=== PATIENT | male | born 1950 | race Caucasian/White ===

== ENCOUNTER 2016-08-19 12:44 | Inpatient (IN) | payer MEDICAID, OTHER ==
[~2016-08-19] VITALS: Ht 170.2 cm; Wt 83.5 kg
[~2016-08-19 12:44] MED LIST: AMLO-145 PO; ASPI-664 PO; ATOR10TA65 PO; CLOP75TA27 PO; FURO40TA4 PO; LOSA50TA2 PO; SPIR25TA PO; UDROBAC PO
[2016-08-19] MEDS ORDERED: ASPIRIN 325 MG TAB PO STA (13:02)
[2016-08-19 13:25] LABS: ADD SCAN DIFF NO
[2016-08-19 13:30] LABS: BASOPHIL # 0.1 10^3/ul (0.0-0.1); BASOPHILS % 0.5 % (0.0-2.0); EOSINOPHILS % 0.2 % (0.0-7.0); HEMATOCRIT 52.8 % (42.0-52.0); HEMOGLOBIN 17.2 g/dl (14.0-18.0); LYMPHOCYTES % 15.7 % (15.0-51.0); MEAN CORPUSCULAR HEMOGLOBIN 30.2 pg (29.0-33.0); MEAN CORPUSCULAR HGB CONC 32.6 g/dl (32.0-37.0); MEAN CORPUSCULAR VOLUME 92.6 fl (82.0-101.0); MEAN PLATELET VOLUME 9.1 fl (7.4-10.4); MONOCYTE # 0.9 10^3/ul (0.3-0.9); MONOCYTES % 6.6 % (0.0-11.0); NEUTROPHIL # 9.9 10^3/ul (1.6-7.5); NEUTROPHILS % 76.6 % (39.0-77.0); PLATELET COUNT 369 10^3/UL (140-415); RED CELL DISTRIBUTION WIDTH 14.6 % (11.5-14.5)
[2016-08-19] MEDS ORDERED: SOD CHLORIDE 0.9% 1,000 ML IV ONE (13:30)
[2016-08-19] MEDS ORDERED: LABETALOL HCL 20MG INJ IV ONE (13:30)
--- NOTE | 2016-08-19 13:33 | RADRPT ---
PROCEDURE: XR Chest. CLINICAL INDICATION: Chest pain/hypertension TECHNIQUE: Chest AP portable. COMPARISON: 01/14/2016 FINDINGS: The mediastinal structures are unremarkable. There is calcification of the thoracic aorta (consiste nt with atherosclerosis). There is moderate cardiac enlargement. There is pulmonary venous hyperte nsion. There are RLL and LLL patchy consolidations, right greater than left (edema/pneumonia). The pleural spaces are unremarkable. The osseous structures are unremarkable. IMPRESSION: Moderate cardiac enlargement. Pulmonary venous hypertension. RLL and LLL patchy consolidations (edema/pneumonia). RPTAT: HGDB .Devin Najera MD, MD Date Time Electronically viewed and signed by .Devin Najera MD, MD on 08/19/2016 13:32 .B/
[2016-08-19 13:40] LABS: INR 1.04; PARTIAL THROMBOPLASTIN TIME 25.1 Sec (25.0-35.0); POTASSIUM 4.3 mmol/L (3.5-5.1); PROTIME 13.6 Sec (12.2-14.2); PT RATIO 1.1
[2016-08-19 13:43] LABS: CREATININE 1.19 mg/dl (0.61-1.24)
[2016-08-19 13:54] LABS: TROPONIN-I 0.065 ng/ml (0.00-0.12)
[2016-08-19] MEDS ORDERED: NITROGLYCERIN (SL) 0.4 MG TAB SL ONE (14:00)
[2016-08-19] MEDS ORDERED: hydrALAzine 20 MG INJ IV ONE (14:30)
[2016-08-19] MEDS ORDERED: AZITHROMYCIN 500MG/NS (PMX) 250 ML IV STA (15:14)
[2016-08-19] MEDS ORDERED: CEFTRIAXONE 1 GM/50 ML (PMX) 50 ML IVPB STA (15:14)
[2016-08-19] MEDS ORDERED: FUROSEMIDE 40 MG INJ IV ONE (15:30)
[2016-08-19] MEDS ORDERED: ONDANSETRON 4 MG INJ IV PRN ×2 (15:30→16:00)
[2016-08-19] MEDS ORDERED: ACETAMINOPHEN 325 MG TAB PO PRN ×2 (15:30→16:00)
[2016-08-19] MEDS ORDERED: HYDROCODONE/APAP (5/325) TAB PO PRN (16:00)
[2016-08-19] MEDS ORDERED: NACL 0.9% 3 ML SYG IV SCH (16:00)
[2016-08-19] MEDS ORDERED: ALBUTEROL/IPRATROPIUM (NEB) 3 ML AMP HHN PRN (16:00)
[2016-08-19] MEDS ORDERED: MAGNESIUM HYDROXIDE 30ML CUP PO PRN (16:00)
[2016-08-19] MEDS ORDERED: morphine 2 MG INJ IV PRN (16:00)
[2016-08-19] MEDS ORDERED: VANCOMYCIN IV PER PHARMACY XX SCH (16:00)
[2016-08-19] MEDS ORDERED: NITROGLYCERIN (SL) 0.4 MG TAB SL PRN (16:00)
[2016-08-19] MEDS ORDERED: DOCUSATE SODIUM 100 MG CAP PO PRN (16:00)
[2016-08-19] MEDS ORDERED: NA PHOSPHATE/BIPHOS 133 ML ENEMA PR PRN (16:00)
[2016-08-19] MEDS ORDERED: GUAIFENESIN/CODEINE 5ML CUP PO PRN (16:00)
--- NOTE | 2016-08-19 16:24 | HP ---
DATE OF ADMISSION: 08/19/2016 IDENTIFICATION: This is a 65-year-old male. CHIEF COMPLAINT: Chest pain, shortness of breath. HISTORY OF PRESENT ILLNESS: A 65-year-old male with past medical history of prior PA and coronary a rtery disease, essential hypertension, CHF and pulmonary hypertension who presents with chest pain a nd shortness of breath for the last few days. He went to his primary care doctor, Dr. Bedoya, who se nt him in because the patient also had high blood pressure as well. He has been off of his blood pr essure medicines for the last 3 months. Denies any abdominal pain, no nausea, no vomiting, no diarr hea, no constipation, no upper or lower GI bleeding, although he has had some gas symptoms. He has only been taking aspirin at home. When he came into the ER today, he was found with a white blood c ell count of 13,000 with signs of pneumonia and also elevated BNP of 4300 and signs of CHF exacerba tion as well. PAST MEDICAL HISTORY: As above. ALLERGIES: NO KNOWN DRUG ALLERGIES. MEDICATIONS AT HOME: 1. Plavix 75 mg daily. 2. Amlodipine 10 mg daily. 3. Atorvastatin 5 mg at bedtime. 4. Cozaar 50 mg b.i.d. 5. Aldactone 25 mg daily. 6. Aspirin 81 mg daily. Again, he has only been taking aspirin at home. 7. Lasix 20 mg daily. 8. Robitussin q.4h. p.r.n. PAST SURGICAL HISTORY: He has had hand surgery in the past and angioplasty in 2016. FAMILY HISTORY: Father had heart disease. SOCIAL HISTORY: He smokes marijuana daily. He drinks about 1 case of beer a week since teenage yea rs. PHYSICAL EXAMINATION: VITAL SIGNS: T-max 98.5, pulse is 99 to 150. Respirations 20 to 22, blood pressure is to 162 to 22 8 systolic over 141 to 174 diastolic, saturating at 89% to 91% on 2 liters nasal cannula. GENERAL: Patient sitting up in bed, answering questions appropriately. No acute distress. HEENT: Pupils equal, round, react to light. Extraocular muscles intact. NECK: Supple, no thyromegaly. LUNGS: Distant breath sounds bilaterally, mild crackles heard at the bases. CARDIOVASCULAR: S1, S2 heard. No rubs or gallops. ABDOMEN: Soft, nontender, nondistended. Normal bowel sounds. No rebound or guarding. MUSCULOSKELETAL: Trace pitting edema bilateral lower extremities to the mid calves. NEUROLOGIC: No focal deficits. LABORATORIES: Basic metabolic panel is normal. Troponin is negative x1. BNP 4800. WBC 13.0, hemo globin 17.3, hematocrit 52.8, platelets of 369. Coags are normal. Chest x-ray shows moderate cardi ac enlargement, pulmonary venous hypertension, right lower lobe and left lower lobe patchy consolida tions, edema versus pneumonia. ASSESSMENT AND PLAN: A 65-year-old male with shortness of breath, chest pain. 1. Shortness of breath. Again, could be secondary to combination of congestive heart failure and p neumonia, so we will put him on Lasix and keep the head of the bed greater than 30 degrees. Monitor ins and outs and daily weights, morphine, oxygen, nitrates as well p.r.n. Put him on high dose aspi rin, rule him out for acute coronary syndrome. Trend his troponins and get a 2D echocardiogram as marii skelton. Get a cardiology consult as well. Again, patient is not taking has not been taking his blood pressure medicines for the last 2 months. 2. Hypertensive urgency. Again, hydralazine p.r.n. Given that he is in acute congestive heart jack lure, we will just do that for now and get a cardiology consult. Again, he is on Lasix as well. 3. History of coronary artery disease with myocardial infarction in the past. Again see #2 as well continue aspirin and Plavix for now. We are also ruling him out for acute coronary syndrome. Cont inue Lipitor. Check TSH, A1c and lipid panel. 4. History of prior congestive heart failure. Again, follow up the echocardiogram results. 5. History of pulmonary hypertension. Again, follow up echocardiogram results. Get a cardiology c onsult as well. 6. Gastrointestinal prophylaxis. He will be on proton pump inhibitor. 7. Deep venous thrombosis prophylaxis. He will be on heparin subQ. Dictated By: SUPA MIKE Conf#: [id number] DID#: [id number]
[2016-08-19] MEDS ORDERED: PIPER-TAZO 3.375 GM IV (PMX) 100 ML IVPB SCH (16:30)
[2016-08-19] MEDS ORDERED: VANCOMYCIN 1.75 GM in SOD CHLORIDE 0.9% 500 ML IVPB SCH (17:30)
--- NOTE | 2016-08-19 17:34 | ERA ---
ER Documentation Chief Complaint Date/Time DATE: 08/19/16 TIME: 17:23 Chief Complaint CAME IN VIA INTAKE FROM MD OFFICE WITH HTN AND TACHYCARDIA HPI 65-year-old male comes in the emergency room for chest pain, shortness of breath that been increasing for 2 days. Also feels like his heart is beating out of his chest. Denies any current nausea or vomiting. Also states that he has had a cough going on for several days there is been increasing. Denies fevers. He has a history of congestive heart failure as well as hypertension. He had angioplasty several months ago. He was put on multiple medications. He is not taking any medications now because he had some insurance problem is not been able to get his medications for months now. ROS All systems reviewed and are negative except as per history of present illness. Medications Home Meds Active Scripts Atorvastatin Calcium (Atorvastatin Calcium) 10 Mg Tablet, 5 MG PO QHS, #30 TAB 1 Refill Prov:ISIS GRAMAJO MD 01/16/16 Furosemide (Lasix) 40 Mg Tab, 40 MG PO DAILY, #30 TAB Prov:ISIS GRAMAJO MD 01/16/16 Guaifenesin-Codeine Phosphate* (Robitussin* AC) 5 Ml Syrup, 5 ML PO Q4H Y for COUGH, #100 ML Prov:ISIS GRAMAJO MD 01/16/16 Losartan Potassium* (Cozaar*) 50 Mg Tablet, 50 MG PO BID, #60 TAB 1 Refill Prov:ISIS GRAMAJO MD 01/16/16 Spironolactone* (Aldactone*) 25 Mg Tablet, 25 MG PO DAILY, #30 TAB 1 Refill Prov:ISIS GRAMAJO MD 01/16/16 Clopidogrel Bisulfate (Clopidogrel) 75 Mg Tablet, 75 MG PO DAILY, #30 TAB 1 Refill Prov:ISIS GRAMAJO MD 01/16/16 Amlodipine Besylate* (Amlodipine Besylate*) 5 Mg Tablet, 10 MG PO DAILY, #30 TAB 1 Refill Prov:ISIS GRAMAJO MD 01/16/16 Aspirin* (Aspirin* EC) 81 Mg Tablet.dr, 81 MG PO DAILY, #30 2 Refills Prov:ISIS GRAMAJO MD 01/16/16 Allergies Allergies: Coded Allergies: No Known Allergy (Unverified , 01/12/16) PMhx/Soc Medical and Surgical Hx: pt denies Surgical Hx History of Surgery: Yes (angioplasty) Anesthesia Reaction: No Hx Neurological Disorder: No Hx Respiratory Disorders: Yes (bronchitis) Hx Cardiac Disorders: Yes Hx Psychiatric Problems: No Hx Miscellaneous Medical Probl: No Hx Alcohol Use: Yes (3 beers a day) Hx Substance Use: Yes (occasional marijuana) Hx Tobacco Use: Yes Smoking Status: Former smoker Physical Exam Vitals Vital Signs Date Time Temp Pulse Resp B/P Pulse Ox O2 Delivery O2 Flow Rate FiO2 08/19/16 16:22 92 22 162/99 98 Nasal Cannula 2.0 08/19/16 14:28 94 22 177/107 98 Nasal Cannula 2.0 08/19/16 14:10 96 20 170/128 98 Nasal Cannula 2.0 08/19/16 13:36 99 22 181/116 91 Nasal Cannula 2.0 08/19/16 13:26 Nasal Cannula 2 08/19/16 13:03 132 20 162/141 89 Room Air 08/19/16 12:48 98.5 150 20 228/174 98 Physical Exam Const: [] Mild distress, Head: Atraumatic Eyes: Normal Conjunctiva ENT: Normal External Ears, Nose and Mouth. Neck: Full range of motion..~ No meningismus. Resp: Bilateral coarse bibasilar crackles and slight decreased breath sounds at the bases. Cardio: Regular tachycardia, no murmurs Abd: Soft, non tender, non distended. Normal bowel sounds Skin: No petechiae or rashes Back: No midline or flank tenderness Ext: No cyanosis, or edema Neur: Awake and alert and oriented 3, no focal deficit Psych: Normal Mood and Affect Result Diagram: 08/19/16 1310 08/19/16 1310 Results 24 hrs Laboratory Tests Test 08/19/16 13:10 08/19/16 15:30 White Blood Count 13.010^3/ul Red Blood Count 5.7010^6/ul Hemoglobin 17.2g/dl Hematocrit 52.8% Mean Corpuscular Volume 92.6fl Mean Corpuscular Hemoglobin 30.2pg Mean Corpuscular Hemoglobin Concent 32.6g/dl Red Cell Distribution Width 14.6% Platelet Count 71140^3/UL Mean Platelet Volume 9.1fl Neutrophils % 76.6% Lymphocytes % 15.7% Monocytes % 6.6% Eosinophils % 0.2% Basophils % 0.5% Nucleated Red Blood Cells % 0.0/100WBC Neutrophils # 9.910^3/ul Lymphocytes # 2.010^3/ul Monocytes # 0.910^3/ul Eosinophils # 0.010^3/ul Basophils # 0.110^3/ul Nucleated Red Blood Cells # 0.010^3/ul Prothrombin Time 13.6Sec Prothrombin Time Ratio 1.1 INR International Normalized Ratio 1.04 Activated Partial Thromboplast Time 25.1Sec Sodium Level 143mmol/L Potassium Level 4.3mmol/L Chloride Level 106mmol/L Carbon Dioxide Level 24mmol/L Anion Gap 17 Blood Urea Nitrogen 14mg/dl Creatinine 1.19mg/dl Glucose Level 150mg/dl Calcium Level 9.0mg/dl Troponin I 0.065ng/ml 0.105ng/ml B-Type Natriuretic Peptide 4320PG/ML Lactic Acid Level 2.6mmol/L Free Thyroxine 1.23ng/dl Current Medications Medications (Trade) Dose Ordered Sig/Mamadou Route PRN Reason Start Time Stop Time Status Last Admin Dose Admin Aspirin (Aspirin) 325 mg ONCE STAT PO 08/19/16 13:02 08/19/16 13:06 DC 08/19/16 13:20 Labetalol HCl 20 mg 20 mg ONCE ONCE IV 08/19/16 13:30 08/19/16 13:31 DC 08/19/16 13:20 Sodium Chloride (NS) 1,000 ml @ 1,000 mls/hr Q1H ONCE IV 08/19/16 13:30 08/19/16 14:29 DC 08/19/16 13:20 Nitroglycerin (Nitroglycerin (Sl Tab) 0.4 Mg) 1 tab ONCE ONCE SL 08/19/16 14:00 08/19/16 14:01 DC 08/19/16 13:43 Hydralazine HCl (Apresoline) 10 mg ONCE ONCE IV 08/19/16 14:30 08/19/16 14:31 DC 08/19/16 14:24 Furosemide 40 mg 40 mg ONCE ONCE IV 08/19/16 15:30 08/19/16 15:31 DC 08/19/16 15:29 Ceftriaxone Sodium 50 ml @ 100 mls/hr ONCE STAT IVPB 08/19/16 15:14 08/19/16 15:43 DC 08/19/16 15:29 Azithromycin (Zithromax 500mg/ NS (Pmx)) 250 ml @ 250 mls/hr ONCE STAT IV 08/19/16 15:14 08/19/16 16:13 DC 08/19/16 16:18 Ondansetron HCl (Zofran Inj) 4 mg ER BRIDGE PRN IV NAUSEA AND/OR VOMITING 08/19/16 15:30 08/20/16 15:29 Acetaminophen (Tylenol Tab) 650 mg ER BRIDGE PRN PO MILD PAIN/FEVER 08/19/16 15:30 08/20/16 15:29 IV Flush (NS 3 ml) 3 ml PER PROTOCOL IV 08/19/16 16:00 Ondansetron HCl (Zofran Inj) 4 mg Q6H PRN IV NAUSEA AND/OR VOMITING 08/19/16 16:00 Acetaminophen (Tylenol Tab) 650 mg Q6H PRN PO PAIN LEVEL 1-3 OR FEVER 08/19/16 16:00 Acetaminophen/ Hydrocodone Bitart ([place] (5/325)) 1 tab Q6H PRN PO MODERATE PAIN LEVEL 4-6 08/19/16 16:00 Morphine Sulfate (morphine) 2 mg Q4H PRN IV SEVERE PAIN LEVEL 7-10 08/19/16 16:00 Docusate Sodium (Colace) 100 mg Q12H PRN PO CONSTIPATION 08/19/16 16:00 Magnesium Hydroxide (Milk Of Mag) 30 ml DAILY PRN PO CONSTIPATION 08/19/16 16:00 Sodium Biphosphate/ Sodium Phosphate (Fleet Enema) 133 ml DAILY PRN [place] CONSTIPATION 08/19/16 16:00 Heparin Sodium (Porcine) (Heparin (5000 Units/0.5 ml)) 5,000 unit Q12 SC 08/19/16 21:00 Lorazepam (Ativan) 0.5 mg Q6H PRN IV ANXIETY 08/19/16 16:00 Albuterol/ Ipratropium (Duoneb) 3 ml Q4H RESP THERAPY PRN HHN SHORTNESS OF BREATH 08/19/16 16:00 Nitroglycerin (Nitroglycerin (Sl Tab) 0.4 Mg) 1 tab Q5M PRN SL ANGINA 08/19/16 16:00 Aspirin (Halfprin) 81 mg DAILY PO 08/20/16 09:00 08/20/16 09:00 DC Atorvastatin Calcium (Lipitor) 5 mg QHS PO 08/19/16 21:00 Clopidogrel Bisulfate (plaVIX) 75 mg DAILY PO 08/20/16 09:00 Guaifenesin/ Codeine Phosphate (Robitussin Ac Liquid Cup) 5 ml Q4H PRN PO COUGH 08/19/16 16:00 Furosemide 40 mg 40 mg BID DIURETICS IV 08/19/16 18:00 Piperacillin Sod/ Tazobactam Sod (Zosyn 3.375gm/ 100 ml (Pmx)) 100 ml @ 200 mls/hr Q6 IVPB 08/19/16 16:30 Vancomycin HCl (Vanco Iv Per Pharmacy) VANCOMYCIN PER PHARMACY PER PROTOCOL XX 08/19/16 16:00 Aspirin 162 mg 162 mg DAILY PO 08/20/16 09:00 Vancomycin HCl 1.75 gm/Sodium Chloride 500 ml @ 125 mls/hr NOW IVPB 08/19/16 17:30 08/19/16 17:31 Vancomycin HCl (Vancocin) 250 ml @ 125 mls/hr Q12H IVPB 08/20/16 05:00 Procedures/MDM Hypertensive emergency and congestive heart failure in a patient with right lower lobe pneumonia with sepsis. 30 cc/kg of IV fluid were not given because of signs of fluid overload and physical exam as well as laboratories and congestive heart failure on chest x-ray. Patient was treated with Rocephin and azithromycin for community-acquired pneumonia. He had unstable vital signs on arrival and his blood pressure was treated with labetalol which reduced it modestly followed by nitroglycerin and hydralazine. His diastolic still remains slightly elevated above 100 but was much better than his initial presentation. Is also feeling somewhat better and less short of breath in the emergency room. He is being admitted to telemetry. Spoke with Dr. Miguel will came to see the patient in the emergency room. EKG interpretation: Sinus tachycardia rate of 130, left axis deviation, left ventricular hypertrophy, QT of 465, no ST or T-wave changes concerning for acute ischemia. clamshell engineer interpretation: Sinus tachycardia followed by normal sinus rhythm after fluid administration with no other arrhythmia. Chest x-ray interpretation: Pulmonary vascular congestion consistent with heart failure with right-sided pneumonia versus possible pleural effusion as well, no pneumothorax, no fractures. Medical care time 37 minutes: Includes treatment of pneumonia with sepsis, hypertensive emergency, use of vasoactive medications labetalol, hydralazine, nitroglycerin attempt to order treatment high blood pressureof congestive heart failure, very careful fluid administration, chart review, multiple visits the patient's bedside to reassess status, discussion with admitting doctor and patient. This does not include any billable procedures Departure Diagnosis: Primary Impression: Hypertensive emergency Additional Impressions: Sepsis due to pneumonia Congestive heart failure Lactic acidosis Condition: Serious LISETTE CAMPBELL DO Aug 19, 2016 17:34
[2016-08-19] MEDS: FUROSEMIDE 40 MG INJ IV SCH (18:58)
[2016-08-19 19:20] LABS: CK-MB 2.22 ng/ml (0.0-2.4)
[2016-08-19 19:21] LABS: TROPONIN-I 0.099 ng/ml (0.00-0.12)
[2016-08-19] MEDS: LORAZEPAM 2 MG INJ IV PRN (20:22)
[2016-08-19 20:30] VITALS: TEMP 98.5
[2016-08-19] MEDS: HEPARIN 5,000 UNIT/0.5 ML VIAL SC SCH (20:38)
[2016-08-19] MEDS ORDERED: ATORVASTATIN 10 MG TAB PO SCH (21:00)
--- NOTE | 2016-08-19 23:30 | RADRPT ---
Echocardiogram Report ADDENDUM Patient Name: ENMA KAHN Gender: Male Date: 1950 Study Date: 19-Aug-2016 Grain Trimmer: HALIE KATE Location: 01 Ref. Physician: SUPA BARDALES Quality: Technically Difficult Study Procedures: Transthoracic echocardiogram with complete 2D, M-Mode, and doppler examination. Indications: Congestive Heart Failure. 2D/M Mode Doppler Measurement Value Normal Ranges Measurement Value Normal Ranges LVIDd 2D 5.0 3.5 - 5.6 cm JENNIFER Vmax 0.7 cm2 LVIDs 2D 3.1 2.1 - 4.1 cm JENNIFER VTI 1.1 cm2 FS 2D 38.2 % AV Mean Loco 1.7 m/sec LVPWd 2D 1.3 0.6 - 1.1 cm AV Mean PG 13.0 mmHg IVSd 2D 1.3 0.6 - 1.1 cm AV Peak Loco 2.3 m/sec IVS/LVPW 2D 1.0 AV Peak PG 21.0 mmHg AoR Diam 2D 2.4 2.0 - 3.7 cm AV VTI 40.4 cm LA/Ao 2D 1 0 - 1 LVOT Mean Loco 0.7 m/sec EDV 2D 127.0 cm3 LVOT Mean PG 3.0 mmHg ESV 2D 29.8 cm3 LVOT Peak Loco 0.7 m/sec LA Dimen 2D 2.8 2.3 - 4.0 cm LVOT Peak PG 2.0 mmHg LVOT Diam 1.7 cm LVOT VTI 19.6 cm LVOT Area 2.3 cm2 MV E Peak Loco 0.8 m/sec MV A Peak Loco 1.2 m/sec MV E/A 0.7 MV Decel Time 165 msec MV E/A 0.7 TR Peak Loco 3.8 m/sec TR Peak PG 59.0 mmHg RVSP 62.0 mmHg Findings Left Ventricle: Normal left ventricular cavity size. Mild concentric left ventricular hypertrophy. Mild left ventricular systolic dysfunction. Ejection fraction is visually estimated at 4045 %. Tissue Doppler/Mitral Doppler indices are consistent with impaired relaxation (Stage I diastolic dysfunction). Right Ventricle: Normal right ventricular size. Normal right ventricular systolic function. Left Atrium: The left atrium is normal in size. Right Atrium: The right atrium is normal in size. Mitral Valve: Mitral valve leaflets appear mildly thickened. Mild mitral annular calcification. Trace mitral regurgitation. Aortic Valve: Moderate aortic stenosis. Aortic valve Max velocity 2.31 m/sec. Max PG 21.00 mmHg. Mean PG 15.00 mmHg. Aortic valve area 0.87 cm2. Tricuspid Valve: Normal appearance of the tricuspid valve. Estimated peak PA systolic pressure 62 mmHg. There is moderate tricuspid regurgitation. Pulmonic Valve: Pulmonic valve not well visualized. Pericardium: Normal pericardium with no significant pericardial effusion. Aorta: Normal aortic root. IVC: Normal size and normal respiratory collapse consistent with normal right atrial pressure. Conclusions Normal left ventricular cavity size. Mild concentric left ventricular hypertrophy. Mild left ventricular systolic dysfunction. Ejection fraction is visually estimated at 40-45 %. Tissue Doppler/Mitral Doppler indices are consistent with impaired relaxation (Stage I diastolic dysfunction). Mitral valve leaflets appear mildly thickened. Mild mitral annular calcification. Trace mitral regurgitation. Moderate aortic stenosis. Aortic valve Max velocity 2.31 m/sec. Max PG 21.00 mmHg. Mean PG 15.00 mmHg. Aortic valve area 0.87 cm2. Normal appearance of the tricuspid valve. Estimated peak PA systolic pressure 62 mmHg. There is moderate tricuspid regurgitation. Electronically Signed By: Jah Cheung 22-Aug-2016 12:29:40 -0700 [ADDENDUM] Patient Name: ENMA KAHN Study Date: 19-Aug-2016 [id number]
[2016-08-20] VITALS (9 sets, daily range): BP systolic 161–189; BP diastolic 86–103; PULSE 86–107; RESP 13–20; Ht 170.2 cm; Wt 83.5 kg
[2016-08-20] MEDS ORDERED: hydrALAzine 20 MG INJ ONE (02:54)
[2016-08-20] MEDS: hydrALAzine 20 MG INJ IV PRN ×3 (03:00→15:07)
[2016-08-20] MEDS ORDERED: VANCOMYCIN 1 GM in NS 250 ML IVPB SCH (05:00)
[2016-08-20] MEDS: FUROSEMIDE 40 MG INJ IV SCH ×2 (05:49→16:28)
[2016-08-20 06:16] LABS: ADD SCAN DIFF NO
[2016-08-20 06:24] LABS: BASOPHIL # 0.1 10^3/ul (0.0-0.1); BASOPHILS % 0.5 % (0.0-2.0); EOSINOPHILS # 0.1 10^3/ul (0.0-0.5); EOSINOPHILS % 0.5 % (0.0-7.0); HEMATOCRIT 48.5 % (42.0-52.0); HEMOGLOBIN 16.1 g/dl (14.0-18.0); LYMPHOCYTES # 1.7 10^3/ul (0.8-2.9); LYMPHOCYTES % 15.7 % (15.0-51.0); MEAN CORPUSCULAR HEMOGLOBIN 30.2 pg (29.0-33.0); MEAN CORPUSCULAR HGB CONC 33.2 g/dl (32.0-37.0); MEAN PLATELET VOLUME 9.2 fl (7.4-10.4); MONOCYTES % 9.5 % (0.0-11.0); NEUTROPHIL # 8.1 10^3/ul (1.6-7.5); NEUTROPHILS % 73.3 % (39.0-77.0); PLATELET COUNT 307 10^3/UL (140-415); RED BLOOD COUNT 5.33 10^6/ul (4.70-6.10)
[2016-08-20 06:55] LABS: CALCIUM 8.3 mg/dl (8.4-10.2); CREATININE 0.93 mg/dl (0.61-1.24); POTASSIUM 3.3 mmol/L (3.5-5.1)
[2016-08-20 07:05] LABS: CHOL/HDL RATIO 4.2 RATIO
[2016-08-20 07:17] LABS: TROPONIN-I 0.1 ng/ml (0.00-0.12)
[2016-08-20 07:20] LABS: CK-MB 2.2 ng/ml (0.0-2.4)
[2016-08-20 07:38] LABS: THYROID STIMULATING HORMONE 2.48 MIU/L (0.465-4.680)
[2016-08-20] MEDS: CLOPIDOGREL 75 MG TAB PO SCH (08:56)
[2016-08-20] MEDS: HEPARIN 5,000 UNIT/0.5 ML VIAL SC SCH ×2 (08:59→20:25)
[2016-08-20] MEDS: ASPIRIN (EC) 81 MG TAB PO SCH (08:59)
[2016-08-20] MEDS ORDERED: ASPIRIN (EC) 81 MG TAB PO SCH (09:00)
[2016-08-20] MEDS: CEFTRIAXONE 1 GM/50 ML (PMX) 50 ML IVPB SCH (14:54)
--- NOTE | 2016-08-20 14:59 | PN ---
Date/Time of Note Date/Time of Note DATE: 08/20/16 TIME: 14:52 Assessment/Plan VTE Prophylaxis VTE Prophylaxis Intervention: heparin Lines/Catheters IV [facility] Urinary Cath still in place: No Assessment/Plan Chief Complaint/Hosp Course ASSESSMENT AND PLAN: 65-year-old male with shortness of breath, chest pain, Hx of CAD. 1. Shortness of breath. Again, could be secondary to combination of congestive heart failure and pneumonia, slowly improving. Has also r/o'ed for ACS. - continue Lasix and keep the head of the bed greater than 30 degrees. - Monitor ins and outs and daily weights, morphine, oxygen, nitrates as well p.r.n - f/u cardiology consult rec's as well. - continue abx 2. Hypertensive urgency - Again, patient is not taking has not been taking his blood pressure medicines for the last 2 months. - continue hydralazine p.r.n., Lasix for now - f/u CV rec's 3. History of coronary artery disease with myocardial infarction in the past. Has ruled out for acute coronary syndrome. Again see #2 as well - continue aspirin and Plavix for now. We are also - Continue Lipitor. 4. History of prior congestive heart failure - ECHO shows; Conclusions 1. Lower limits of normal systolic function. Normal left ventricular cavity size. Mild concentric left ventricular hypertrophy. Ejection fraction is visually estimated at 50-55 %. Tissue Doppler/ Mitral Doppler indices are consistent with impaired relaxation (Stage I diastolic dysfunction). 2. Mitral valve leaflets appear mildly thickened. Mild mitral annular calcification. Trace mitral regurgitation. 3. Moderate aortic stenosis. Mean PG 15.00 mmHg. Aortic valve area 0.87 cm2. 4. Normal appearance of the tricuspid valve. Estimated peak PA systolic pressure 62 mmHg. There is moderate tricuspid regurgitation. - monitor for now, Lasix. 5. History of pulmonary hypertension. - f/u cardiology consult rec'sas well. 6. Gastrointestinal prophylaxis - proton pump inhibitor. 7. Deep venous thrombosis prophylaxis - heparin subQ. Problems: Subjective 24 Hr Interval Summary Free Text/Dictation Pt states less SOB. Exam/Review of Systems Vital Signs Vitals Vital Signs Date Time Temp Pulse Resp B/P Pulse Ox O2 Delivery O2 Flow Rate FiO2 08/20/16 12:19 81 16 147/90 98 08/20/16 06:50 Room Air 08/19/16 22:30 2.0 08/19/16 20:30 98.5 Intake and Output 08/19/16 08/19/16 08/20/16 15:00 23:00 07:00 Output Total 2750 ml 750 ml Balance -2750 ml -750 ml Exam GENERAL: Patient sitting up in bed, answering questions appropriately. No acute distress. HEENT: Pupils equal, round, react to light. Extraocular muscles intact. NECK: Supple, no thyromegaly. LUNGS: some distant breath sounds bilaterally, mild crackles heard at the bases. CARDIOVASCULAR: S1, S2 heard. No rubs or gallops. ABDOMEN: Soft, nontender, nondistended. Normal bowel sounds. No rebound or guarding. MUSCULOSKELETAL: Trace pitting edema bilateral lower extremities to the mid calves. NEUROLOGIC: No focal deficits. Results Result Diagram: 08/20/16 0545 08/20/16 0540 Results 24 hrs Laboratory Tests Test 08/19/16 15:30 08/19/16 17:30 08/19/16 18:50 08/19/16 23:40 Lactic Acid Level 2.6 H 3.4 H 3.1 H Troponin I 0.105 0.099 0.095 Free Thyroxine 1.23 Creatine Kinase 86 Creatine Kinase Index 2.6 Creatinine Kinase MB (Mass) 2.22 Test 08/20/16 05:40 08/20/16 05:45 08/20/16 08:35 Sodium Level 139 Potassium Level 3.3 L Chloride Level 106 Carbon Dioxide Level 24 Anion Gap 12 Blood Urea Nitrogen 16 Creatinine 0.93 Glucose Level 158 Hemoglobin A1c 5.4 Calcium Level 8.3 L Creatine Kinase 229 H Creatine Kinase Index 1.0 Creatinine Kinase MB (Mass) 2.20 Troponin I 0.100 0.099 Triglycerides Level 116 Cholesterol Level 206 H LDL Cholesterol, Calculated 135 HDL Cholesterol 48 Cholesterol/HDL Ratio 4.2 Thyroid Stimulating Hormone (TSH) 2.480 White Blood Count 11.0 H Red Blood Count 5.33 Hemoglobin 16.1 Hematocrit 48.5 Mean Corpuscular Volume 91.0 Mean Corpuscular Hemoglobin 30.2 Mean Corpuscular Hemoglobin Concent 33.2 Red Cell Distribution Width 15.0 H Platelet Count 307 Mean Platelet Volume 9.2 Neutrophils % 73.3 Lymphocytes % 15.7 Monocytes % 9.5 Eosinophils % 0.5 Basophils % 0.5 Nucleated Red Blood Cells % 0.0 Neutrophils # 8.1 H Lymphocytes # 1.7 Monocytes # 1.0 H Eosinophils # 0.1 Basophils # 0.1 Nucleated Red Blood Cells # 0.0 Medications Medications Current Medications Ondansetron HCl (Zofran Inj) 4 mg Q6H PRN IV NAUSEA AND/OR VOMITING; Start at 16:00 Acetaminophen (Tylenol Tab) 650 mg Q6H PRN PO PAIN LEVEL 1-3 OR FEVER; Start at 16:00 Acetaminophen/ Hydrocodone Bitart ([place] (5/325)) 1 tab Q6H PRN PO MODERATE PAIN LEVEL 4-6; Start 08/19/16 at 16:00 Morphine Sulfate (morphine) 2 mg Q4H PRN IV SEVERE PAIN LEVEL 7-10; Start 08/19 at 16:00 Docusate Sodium (Colace) 100 mg Q12H PRN PO CONSTIPATION; Start 08/19/16 at 16: 00 Magnesium Hydroxide (Milk Of Mag) 30 ml DAILY PRN PO CONSTIPATION; Start at 16:00 Sodium Biphosphate/ Sodium Phosphate (Fleet Enema) 133 ml DAILY PRN [place] CONSTIPATION; Start 08/19/16 at 16:00 Heparin Sodium (Porcine) (Heparin (5000 Units/0.5 ml)) 5,000 unit Q12 SC Last administered on 08/20/16 08:59; Admin Dose 5,000 UNIT; Start 08/19/16 at 21:00 Lorazepam (Ativan) 0.5 mg Q6H PRN IV ANXIETY Last administered on 08/19/16 20: 22; Admin Dose 0.5 MG; Start 08/19/16 at 16:00 Nitroglycerin (Nitroglycerin (Sl Tab) 0.4 Mg) 1 tab Q5M PRN SL ANGINA; Start at 16:00 Atorvastatin Calcium (Lipitor) 5 mg QHS PO Last administered on 08/19/16 20:36 ; Admin Dose 5 MG; Start 08/19/16 at 21:00 Clopidogrel Bisulfate (plaVIX) 75 mg DAILY PO Last administered on 08/20/16 08 :56; Admin Dose 75 MG; Start 08/20/16 at 09:00 Guaifenesin/ Codeine Phosphate (Robitussin Ac Liquid Cup) 5 ml Q4H PRN PO COUGH ; Start 08/19/16 at 16:00 Aspirin 162 mg 162 mg DAILY PO Last administered on 08/20/16 08:59; Admin Dose 162 MG; Start 08/20/16 at 09:00 Ceftriaxone Sodium 50 ml @ 100 mls/hr DAILY@1530 IVPB ; Start 08/20/16 at 15:30 Azithromycin (Zithromax 500mg/ NS (Pmx)) 250 ml @ 250 mls/hr DAILY@16 IVPB ; Start 08/20/16 at 16:00 Hydralazine HCl (Apresoline) 10 mg Q4H PRN IV SBP > 160 Last administered on 06:59; Admin Dose 10 MG; Start 08/20/16 at 03:00 SUPA BARDALES Aug 20, 2016 14:59
[2016-08-20] MEDS: AZITHROMYCIN 500MG/NS (PMX) 250 ML IVPB SCH (16:27)
--- NOTE | 2016-08-20 17:31 | CONS ---
DATE OF ADMISSION: 08/19/2016 DATE OF CONSULTATION: 08/20/2016 TYPE OF CONSULTATION: Cardiology. REASON FOR CONSULTATION: Shortness of breath, chest pain, assess for acute coronary syndrome. REQUESTING PHYSICIAN: Dr. Espana from the hospitalist service. HISTORY OF PRESENT ILLNESS: Mr. Rivera is a 65-year-old male with history of prior [place], coronary art jayme disease, status post PTCA to December 2015, hypertension, ICD, cardiomyopathy, decrea sed left ventricular ejection fraction, last being approximately 45% by echo 12/2015. He presents w ith complaints of substernal chest pain described as a stabbing sensation radiating across his ches t for last month and shortness of breath ongoing for multiple months. Upon arrival, temperature of 98.5, blood pressure markedly elevated 228/174, pulse 150, respiratory rate 20, saturating 98%. The patient's labs revealed white count 13.0, hemoglobin 10.2, platelet count 369. Sodium 142, potassi um 4.3, creatinine 1.1, BUN 14. Troponin negative. BNP of 4320, free T4 of 1.23 within normal limi ts. INR of 1.0. The patient underwent a chest x-ray revealing moderate cardiac enlargement, pulmon kiet venous hypertension, right lower lobe and left lower lobe patchy consolidations. The patient's electrocardiogram revealed normal sinus rhythm at a rate of 90 with left axis deviation and deep T-w ave inversions across the anterior precordial leads as well as the inferior. The patient has been d iagnosed with pneumonia, treated with azithromycin and ceftriaxone. In addition, he was placed on a spirin and Plavix, which the patient states he had been off after angioplasty due to insurance reaso ns. PAST MEDICAL HISTORY: As above in HPI. MEDICATIONS CURRENTLY IN HOSPITAL: 1. Azithromycin. 2. Ceftriaxone. 3. Plavix 75 mg daily. 4. Plavix 160 mg daily. 5. Hydralazine p.r.n. 6. Heparin 5000 subcutaneous q. 12. 7. Lipitor 5 mg at bedtime. 8. Lasix 40 mg IV b.i.d. 9. Zofran p.r.n. 10. Tylenol p.r.n. 11. [place] p.r.n. 12. Morphine p.r.n. 13. Colace p.r.n. 14. Milk of magnesia. 15. Ativan p.r.n. 16. DuoNebs p.r.n. 17. Sublingual nitroglycerin p.r.n. 18. Robitussin-AC p.r.n. ALLERGIES: NO KNOWN DRUG ALLERGIES. SOCIAL HISTORY: No current tobacco. Positive marijuana usage. Social ETOH. FAMILY HISTORY: History of sudden cardiac or early CAD. REVIEW OF SYSTEMS: As above in HPI. CONSTITUTIONAL: No fevers, chills. PULMONARY: Shortness of breath. CARDIOVASCULAR: Chest pain. GASTROINTESTINAL: No vomiting. GENITOURINARY: No hematuria. MUSCULOSKELETAL: Degenerative joint disease. PSYCHIATRIC: The patient denies depression. NEUROLOGIC: No documented history of CVA. ENDOCRINE: No history of thyroid disease, diabetes mellitus. PHYSICAL EXAMINATION: VITAL SIGNS: Temperature of 98.5, blood pressure 184/92, pulse 103. Respirations 18, saturating 96 % on oxygen. GENERAL: The patient is alert, awake, complaining of shortness of breath, substernal sharp chest pa in. NECK: JVP approximately 9 cm water. CHEST: Decreased breath sounds at bases bilaterally. HEART: Regular rate and rhythm. Normal S1, S2, I/ systolic murmur, nondisplaced PMI. ABDOMEN: Positive bowel sounds, soft. EXTREMITIES: No edema, 1+ pulses bilaterally, posterior tibial. LABORATORY DATA: As above in HPI, with most recent from today was hemoglobin 6.1, platelet count 30 7. Sodium 139, potassium 3.3, creatinine 0.9, BUN of 16. Troponin negative x3. TSH is 2.48. INR 1.0. IMAGING STUDIES: Chest x-ray from the revealing moderate cardiac enlargement, pulmonary venous hypertension, right lower lobe and left lower lobe patchy consolidations. ECG: As above in HPI. No further electrocardiograms for my review at this time. IMPRESSION: 1. Chest pain, assess for acute coronary syndrome. 2. Abnormal electrocardiogram with deep T-wave inversions across the anterolateral precordial leads . Assess for acute coronary syndrome. 3. Hypertension urgency/emergency. 4. History of a percutaneous transluminal coronary angioplasty to diagonal 12/2015. 5. Probable pneumonia. 6. Mild leukocytosis. RECOMMENDATIONS: 1. At this time, would maintain the patient on telemetry monitoring to follow rhythm and rate contr ol closely. 2. Will complete the patient's rule out for myocardial infarction and thus send additional troponin . 3. Would continue the patient's current aspirin and Plavix and we will check a repeat 2D echo to re assess patient's ejection fraction, wall motion and any major valve abnormalities. 4. Continue the patient's current statin therapy and adjust it according to a fasting lipid panel a s checked. 5. Follow up all culture data including blood cultures and her sputum cultures. Thank you for allowing me to take part in the care of this patient. I will continue to follow him gricelda delacruz closely with you with further recommendations to be made as the patient progresses through his i npatient hospital course. Dictated By: ROXANN LEMUS/LEE Conf#: [id number] DID#: [id number] CC: ISIS GRAMAJO MD;*[facility]*
[2016-08-20] MEDS: BENAZEPRIL 20 MG TAB PO SCH (20:19)
[2016-08-20] MEDS: ATORVASTATIN 20 MG TAB PO SCH (20:20)
[2016-08-20] MEDS ORDERED: ZOLPIDEM 5 MG TAB PO PRN ×2 (23:30)
[2016-08-21] VITALS (13 sets, daily range): BP systolic 130–198; BP diastolic 84–115; PULSE 85–108; RESP 17–22
[2016-08-21] MEDS: FUROSEMIDE 40 MG INJ IV SCH ×2 (05:23→17:29)
[2016-08-21 07:27] LABS: ADD SCAN DIFF NO
[2016-08-21 07:35] LABS: BASOPHIL # 0.1 10^3/ul (0.0-0.1); BASOPHILS % 0.6 % (0.0-2.0); EOSINOPHILS # 0.2 10^3/ul (0.0-0.5); EOSINOPHILS % 1.9 % (0.0-7.0); HEMATOCRIT 51.2 % (42.0-52.0); HEMOGLOBIN 16.9 g/dl (14.0-18.0); LYMPHOCYTES # 1.4 10^3/ul (0.8-2.9); LYMPHOCYTES % 11.7 % (15.0-51.0); MEAN CORPUSCULAR HEMOGLOBIN 29.6 pg (29.0-33.0); MEAN CORPUSCULAR VOLUME 89.8 fl (82.0-101.0); MEAN PLATELET VOLUME 9.5 fl (7.4-10.4); MONOCYTE # 1.2 10^3/ul (0.3-0.9); MONOCYTES % 10.6 % (0.0-11.0); NEUTROPHIL # 8.8 10^3/ul (1.6-7.5); NEUTROPHILS % 74.9 % (39.0-77.0); PLATELET COUNT 318 10^3/UL (140-415); RED CELL DISTRIBUTION WIDTH 15.2 % (11.5-14.5); WHITE BLOOD COUNT 11.8 10^3/ul (4.8-10.8)
[2016-08-21 07:51] LABS: TROPONIN-I 0.064 ng/ml (0.00-0.12)
[2016-08-21 07:55] LABS: CK-MB 2.95 ng/ml (0.0-2.4)
[2016-08-21] MEDS: hydrALAzine 20 MG INJ IV PRN (07:56)
[2016-08-21 09:34] LABS: POTASSIUM 3.2 mmol/L (3.5-5.1)
[2016-08-21 09:37] LABS: CREATININE 1.09 mg/dl (0.61-1.24)
[2016-08-21 09:38] LABS: CALCIUM 8.9 mg/dl (8.4-10.2)
[2016-08-21] MEDS ORDERED: REGADENOSON 0.4 MG/5 ML SYG ONE (10:44)
[2016-08-21] MEDS ORDERED: POTASSIUM CHLORIDE (SR) 20 MEQ TAB PO STA (11:21)
--- NOTE | 2016-08-21 11:28 | PN ---
Date/Time of Note Date/Time of Note DATE: 08/21/16 TIME: 11:23 Assessment/Plan VTE Prophylaxis VTE Prophylaxis Intervention: heparin Lines/Catheters IV [facility] Saline Lock Urinary Cath still in place: No Assessment/Plan Chief Complaint/Hosp Course ASSESSMENT AND PLAN: 65-year-old male with shortness of breath, chest pain, Hx of CAD. 1. Shortness of breath. Again, could be secondary to combination of congestive heart failure and pneumonia, slowly improving. Has also r/o'ed for ACS. - continue Lasix and keep the head of the bed greater than 30 degrees. - Monitor ins and outs and daily weights, morphine, oxygen, nitrates as well p.r.n - f/u cardiology consult rec's as well. - continue abx 2. Hypertensive urgency - Again, patient is not taking has not been taking his blood pressure medicines for the last 2 months. - continue hydralazine p.r.n., Lasix for now - f/u CV rec's 3. History of coronary artery disease with myocardial infarction in the past. Has ruled out for acute coronary syndrome. Again see #2 as well - continue aspirin and Plavix for now. - Continue Lipitor. - for cardiac stress test today - f/u results. 4. History of prior congestive heart failure - ECHO shows; Conclusions 1. Lower limits of normal systolic function. Normal left ventricular cavity size. Mild concentric left ventricular hypertrophy. Ejection fraction is visually estimated at 50-55 %. Tissue Doppler/ Mitral Doppler indices are consistent with impaired relaxation (Stage I diastolic dysfunction). 2. Mitral valve leaflets appear mildly thickened. Mild mitral annular calcification. Trace mitral regurgitation. 3. Moderate aortic stenosis. Mean PG 15.00 mmHg. Aortic valve area 0.87 cm2. 4. Normal appearance of the tricuspid valve. Estimated peak PA systolic pressure 62 mmHg. There is moderate tricuspid regurgitation. - monitor for now, Lasix. 5. History of pulmonary hypertension. - f/u cardiology consult rec'sas well. 6. Gastrointestinal prophylaxis - proton pump inhibitor. 7. Deep venous thrombosis prophylaxis - heparin subQ. Problems: Subjective 24 Hr Interval Summary Free Text/Dictation No acute events overnight. Seen by CV team. Getting CV stress test now. Exam/Review of Systems Vital Signs Vitals Vital Signs Date Time Temp Pulse Resp B/P Pulse Ox O2 Delivery O2 Flow Rate FiO2 08/21/16 09:44 130/84 08/21/16 08:25 104 08/21/16 08:02 98.0 17 92 08/21/16 05:19 Room Air 08/19/16 22:30 2.0 Intake and Output 08/20/16 08/20/16 08/21/16 15:00 23:00 07:00 Intake Total 400 ml 480 ml 320 ml Output Total 500 ml Balance -100 ml 480 ml 320 ml Exam PE: - unable to be performed today b/c pt off floor at procedure Results Result Diagram: 08/21/16 0635 08/21/16 0635 Results 24 hrs Laboratory Tests Test 08/21/16 06:35 White Blood Count 11.8 H Red Blood Count 5.70 Hemoglobin 16.9 Hematocrit 51.2 Mean Corpuscular Volume 89.8 Mean Corpuscular Hemoglobin 29.6 Mean Corpuscular Hemoglobin Concent 33.0 Red Cell Distribution Width 15.2 H Platelet Count 318 Mean Platelet Volume 9.5 Neutrophils % 74.9 Lymphocytes % 11.7 L Monocytes % 10.6 Eosinophils % 1.9 Basophils % 0.6 Nucleated Red Blood Cells % 0.0 Neutrophils # 8.8 H Lymphocytes # 1.4 Monocytes # 1.2 H Eosinophils # 0.2 Basophils # 0.1 Nucleated Red Blood Cells # 0.0 Sodium Level 139 Potassium Level 3.2 L Chloride Level 100 Carbon Dioxide Level 26 Anion Gap 16 Blood Urea Nitrogen 21 H Creatinine 1.09 Glucose Level 124 Calcium Level 8.9 Creatine Kinase 1387 #H Creatine Kinase Index 0.2 Creatinine Kinase MB (Mass) 2.95 H Troponin I 0.064 Medications Medications Current Medications Ondansetron HCl (Zofran Inj) 4 mg Q6H PRN IV NAUSEA AND/OR VOMITING; Start at 16:00 Acetaminophen (Tylenol Tab) 650 mg Q6H PRN PO PAIN LEVEL 1-3 OR FEVER; Start at 16:00 Acetaminophen/ Hydrocodone Bitart ([place] (5/325)) 1 tab Q6H PRN PO MODERATE PAIN LEVEL 4-6; Start 08/19/16 at 16:00 Morphine Sulfate (morphine) 2 mg Q4H PRN IV SEVERE PAIN LEVEL 7-10 Last administered on 08/20/16t 16:12; Admin Dose 2 MG; Start 08/19/16 at 16:00 Docusate Sodium (Colace) 100 mg Q12H PRN PO CONSTIPATION; Start 08/19/16 at 16: 00 Magnesium Hydroxide (Milk Of Mag) 30 ml DAILY PRN PO CONSTIPATION; Start at 16:00 Sodium Biphosphate/ Sodium Phosphate (Fleet Enema) 133 ml DAILY PRN MD CONSTIPATION; Start 08/19/16 at 16:00 Heparin Sodium (Porcine) (Heparin (5000 Units/0.5 ml)) 5,000 unit Q12 SC Last administered on 08/20/16 20:25; Admin Dose 5,000 UNIT; Start 08/19/16 at 21:00 Lorazepam (Ativan) 0.5 mg Q6H PRN IV ANXIETY Last administered on 08/19/16 20: 22; Admin Dose 0.5 MG; Start 08/19/16 at 16:00 Nitroglycerin (Nitroglycerin (Sl Tab) 0.4 Mg) 1 tab Q5M PRN SL ANGINA; Start at 16:00 Clopidogrel Bisulfate (plaVIX) 75 mg DAILY PO Last administered on 08/20/16 08 :56; Admin Dose 75 MG; Start 08/20/16 at 09:00 Guaifenesin/ Codeine Phosphate (Robitussin Ac Liquid Cup) 5 ml Q4H PRN PO COUGH ; Start 08/19/16 at 16:00 Aspirin 162 mg 162 mg DAILY PO Last administered on 08/20/16 08:59; Admin Dose 162 MG; Start 08/20/16 at 09:00 Ceftriaxone Sodium 50 ml @ 100 mls/hr DAILY@1530 IVPB Last administered on 14:54; Admin Dose 100 MLS/HR; Start 08/20/16 at 15:30 Azithromycin (Zithromax 500mg/ NS (Pmx)) 250 ml @ 250 mls/hr DAILY@16 IVPB Last administered on 08/20/16 16:27; Admin Dose 250 MLS/HR; Start 08/20/16 at 16:00 Hydralazine HCl (Apresoline) 10 mg Q4H PRN IV SBP > 160 Last administered on 07:56; Admin Dose 10 MG; Start 08/20/16 at 03:00 Atorvastatin Calcium (Lipitor) 20 mg DAILY@21 PO Last administered on 20:20; Admin Dose 20 MG; Start 08/20/16 at 21:00 Benazepril HCl (Lotensin) 20 mg BID PO Last administered on 08/20/16 20:19; Admin Dose 20 MG; Start 08/20/16 at 21:00 Zolpidem Tartrate (Ambien) 10 mg HS PRN PO INSOMNIA; Start 08/20/16 at 23:30 SUPA BARDALES Aug 21, 2016 11:28
--- NOTE | 2016-08-21 12:13 | CONS ---
Date/Time of Note Date/Time of Note DATE: 08/21/16 TIME: 12:08 Assessment/Plan Assessment/Plan Chief Complaint/Hosp Course IMPRESSION: 1. Chest pain, assess for acute coronary syndrome.-negative troponin x 3 2. Abnormal electrocardiogram with deep T-wave inversions across the anterolateral precordial leads. 3. Hypertension urgency/emergency. 4. History of a percutaneous transluminal coronary angioplasty to diagonal 2015. 5. Probable pneumonia. 6. Mild leukocytosis. 7.Possible CHF-diastolic acute on chronic by echo this admit with EF 50-55 Recc: -Tele -serial ecg's -Continue ACEI -Continue statin -Continue asa/plavix -Continue lasix -Start BB -Lexiscan stress test today Problems: Consultation Date/Type/Reason Admit Date/Time Aug 19, 2016 at 15:20 Initial Consult Date 08/20/2016 Type of Consultation: Cardiology Reason for Consultation Chest pain Referring Provider: SUPA BARDALES Exam/Review of Systems Vital Signs Vitals Vital Signs Date Time Temp Pulse Resp B/P Pulse Ox O2 Delivery O2 Flow Rate FiO2 08/21/16 09:44 130/84 08/21/16 08:25 104 08/21/16 08:02 98.0 17 92 08/21/16 05:19 Room Air 08/19/16 22:30 2.0 Intake and Output 08/20/16 08/20/16 08/21/16 15:00 23:00 07:00 Intake Total 400 ml 480 ml 320 ml Output Total 500 ml Balance -100 ml 480 ml 320 ml Exam Review of Systems: CONSTITUTIONAL: No fevers, chills. PULMONARY: No sob CARDIOVASCULAR:intermitent chest pain GASTROINTESTINAL: No nausea/vomiting. GENITOURINARY: No hematuria/dysuria. MUSCULOSKELETAL: No myagias/arthalgias. PSYCHIATRIC: The patient denies depression. NEUROLOGIC: No weakness Constitutional: alert, oriented Psych: no complaints Head: normocephalic ENMT: mucosa pink and moist Neck: jvd (8 cm water), supple Respiratory: clear to auscultation Cardiovascular: regular rate and rhythm Gastrointestinal: non-tender, soft Extremities: edema (none) Neurological: other (No focal deficits) Results Result Diagram: 08/21/16 0635 08/21/16 0635 Results 24 hrs Laboratory Tests Test 08/21/16 06:35 White Blood Count 11.8 H Red Blood Count 5.70 Hemoglobin 16.9 Hematocrit 51.2 Mean Corpuscular Volume 89.8 Mean Corpuscular Hemoglobin 29.6 Mean Corpuscular Hemoglobin Concent 33.0 Red Cell Distribution Width 15.2 H Platelet Count 318 Mean Platelet Volume 9.5 Neutrophils % 74.9 Lymphocytes % 11.7 L Monocytes % 10.6 Eosinophils % 1.9 Basophils % 0.6 Nucleated Red Blood Cells % 0.0 Neutrophils # 8.8 H Lymphocytes # 1.4 Monocytes # 1.2 H Eosinophils # 0.2 Basophils # 0.1 Nucleated Red Blood Cells # 0.0 Sodium Level 139 Potassium Level 3.2 L Chloride Level 100 Carbon Dioxide Level 26 Anion Gap 16 Blood Urea Nitrogen 21 H Creatinine 1.09 Glucose Level 124 Calcium Level 8.9 Creatine Kinase 1387 #H Creatine Kinase Index 0.2 Creatinine Kinase MB (Mass) 2.95 H Troponin I 0.064 Medications Medications Current Medications Ondansetron HCl (Zofran Inj) 4 mg Q6H PRN IV NAUSEA AND/OR VOMITING; Start at 16:00 Acetaminophen (Tylenol Tab) 650 mg Q6H PRN PO PAIN LEVEL 1-3 OR FEVER; Start at 16:00 Acetaminophen/ Hydrocodone Bitart ([place] (5/325)) 1 tab Q6H PRN PO MODERATE PAIN LEVEL 4-6; Start 08/19/16 at 16:00 Morphine Sulfate (morphine) 2 mg Q4H PRN IV SEVERE PAIN LEVEL 7-10 Last administered on 08/20/16 16:12; Admin Dose 2 MG; Start 08/19/16 at 16:00 Docusate Sodium (Colace) 100 mg Q12H PRN PO CONSTIPATION; Start 08/19/16 at 16: 00 Magnesium Hydroxide (Milk Of Mag) 30 ml DAILY PRN PO CONSTIPATION; Start at 16:00 Sodium Biphosphate/ Sodium Phosphate (Fleet Enema) 133 ml DAILY PRN [place] CONSTIPATION; Start 08/19/16 at 16:00 Heparin Sodium (Porcine) (Heparin (5000 Units/0.5 ml)) 5,000 unit Q12 SC Last administered on 08/20/16 20:25; Admin Dose 5,000 UNIT; Start 08/19/16 at 21:00 Lorazepam (Ativan) 0.5 mg Q6H PRN IV ANXIETY Last administered on 08/19/16 20: 22; Admin Dose 0.5 MG; Start 08/19/16 at 16:00 Nitroglycerin (Nitroglycerin (Sl Tab) 0.4 Mg) 1 tab Q5M PRN SL ANGINA; Start at 16:00 Clopidogrel Bisulfate (plaVIX) 75 mg DAILY PO Last administered on 08/20/16 08 :56; Admin Dose 75 MG; Start 08/20/16 at 09:00 Guaifenesin/ Codeine Phosphate (Robitussin Ac Liquid Cup) 5 ml Q4H PRN PO COUGH ; Start 08/19/16 at 16:00 Aspirin 162 mg 162 mg DAILY PO Last administered on 08/20/16 08:59; Admin Dose 162 MG; Start 08/20/16 at 09:00 Ceftriaxone Sodium 50 ml @ 100 mls/hr DAILY@1530 IVPB Last administered on 14:54; Admin Dose 100 MLS/HR; Start 08/20/16 at 15:30 Azithromycin (Zithromax 500mg/ NS (Pmx)) 250 ml @ 250 mls/hr DAILY@16 IVPB Last administered on 08/20/16 16:27; Admin Dose 250 MLS/HR; Start 08/20/16 at 16:00 Hydralazine HCl (Apresoline) 10 mg Q4H PRN IV SBP > 160 Last administered on 07:56; Admin Dose 10 MG; Start 08/20/16 at 03:00 Atorvastatin Calcium (Lipitor) 20 mg DAILY@21 PO Last administered on 20:20; Admin Dose 20 MG; Start 08/20/16 at 21:00 Benazepril HCl (Lotensin) 20 mg BID PO Last administered on 08/20/16 20:19; Admin Dose 20 MG; Start 08/20/16 at 21:00 Zolpidem Tartrate (Ambien) 10 mg HS PRN PO INSOMNIA; Start 08/20/16 at 23:30 ROXANN NO Aug 21, 2016 12:13
[2016-08-21] MEDS: CLOPIDOGREL 75 MG TAB PO SCH (13:06)
[2016-08-21] MEDS: BENAZEPRIL 20 MG TAB PO SCH ×2 (13:06→20:24)
[2016-08-21] MEDS: ASPIRIN (EC) 81 MG TAB PO SCH (13:06)
[2016-08-21] MEDS: HEPARIN 5,000 UNIT/0.5 ML VIAL SC SCH ×2 (13:13→20:33)
--- NOTE | 2016-08-21 13:32 | CARRPT ---
DATE OF PROCEDURE: 08/21/2016 REASON FOR STRESS TESTING: Chest pain, assess for ischemia. BASELINE VITAL SIGNS AND ELECTROCARDIOGRAM: Pulse of 91, blood pressure 160/96. Electrocardiogram reveals sinus rhythm, rate 98, left axis deviation, occasional PVCs and inferior, anterior and later al T-wave inversions. PROCEDURE: The patient underwent standard Lexiscan infusion protocol over 10 seconds followed by ra brown. The patient's test was stopped due to completion of protocol. Maximal achieved blood pr essure during the test 158/83. Maximum heart rate during the test 111. ELECTROCARDIOGRAM FINDINGS: During Lexiscan infusion, the patient did not develop any new Lexiscan- induced ST or T-wave changes from baseline abnormalities. Had occasional PVCs throughout stress jonas ting. SYMPTOMS: The patient had slight chest pain which resolved in recovery. IMPRESSION: 1. No Lexiscan-induced ST or T-wave changes from baseline abnormalities or diagnostic cardiac ische mari. 2. No complaints of shortness breath during stress testing, but positive chest pain which resolved in recovery. 3. Positive premature ventricular contractions during stress testing. 4. Report of nuclear images to follow in separate dictation. Dictated By: ROXANN LEMUS/LEE Conf#: [id number] DID#: [id number] CC: SUPA BARDALES;*[facility]*
[2016-08-21] MEDS: METOPROLOL 25 MG TAB PO SCH ×2 (15:10→20:24)
[2016-08-21] MEDS: CEFTRIAXONE 1 GM/50 ML (PMX) 50 ML IVPB SCH (15:13)
[2016-08-21] MEDS: AZITHROMYCIN 500MG/NS (PMX) 250 ML IVPB SCH (16:11)
--- NOTE | 2016-08-21 16:50 | RADRPT ---
PROCEDURE: Lexiscan myocardial perfusion study CLINICAL INDICATION: 65 -year-old patient complaining of chest pain. TECHNIQUE: Lexiscan 0.4 mg intravenously separate acquisition gated myocardial perfusion SPECT usi ng Tc 99m Myoview 33.0 mCi intravenously at stress and Tc-99m Myoview, 10.2 mCi intravenously at res t was performed using the rest/stress sequence. Poststress Myoview SPECT images were obtained in th e supine position. COMPARISON: No prior studies. FINDINGS: Perfusion images reveal mild nonreversible perfusion abnormality in the inferior wall. Lexiscan post stress gated SPECT images demonstrate mild to moderate hypokinesis of the left ventric le. IMPRESSION: 1. No evidence of stress-induced ischemia. 2. Mild to moderate hypokinesis of the left ventricle. 3. The left ventricle ejection fraction at stress is 37%. RPTAT: QQ .Katalina Mederos MD, Date Time Electronically viewed and signed by .Katalina Mederos MD, on 08/21/2016 16:50 .L/
[2016-08-21] MEDS: LORAZEPAM 2 MG INJ IV PRN (19:05)
[2016-08-21] MEDS: ATORVASTATIN 20 MG TAB PO SCH (20:23)
[2016-08-22] VITALS (9 sets, daily range): BP systolic 114–201; BP diastolic 73–115; PULSE 77–96; RESP 18–20
[2016-08-22] MEDS: hydrALAzine 20 MG INJ IV PRN ×2 (04:24→07:49)
[2016-08-22] MEDS: FUROSEMIDE 40 MG INJ IV SCH (06:08)
[2016-08-22 08:27] LABS: ADD SCAN DIFF NO
[2016-08-22] MEDS: CLOPIDOGREL 75 MG TAB PO SCH (08:29)
[2016-08-22] MEDS: METOPROLOL 25 MG TAB PO SCH (08:30)
[2016-08-22] MEDS: ASPIRIN (EC) 81 MG TAB PO SCH (08:30)
[2016-08-22] MEDS: BENAZEPRIL 20 MG TAB PO SCH (08:30)
[2016-08-22 08:37] LABS: BASOPHIL # 0.1 10^3/ul (0.0-0.1); BASOPHILS % 0.6 % (0.0-2.0); EOSINOPHILS # 0.1 10^3/ul (0.0-0.5); EOSINOPHILS % 1.4 % (0.0-7.0); HEMATOCRIT 48.9 % (42.0-52.0); HEMOGLOBIN 16.2 g/dl (14.0-18.0); LYMPHOCYTES % 10.6 % (15.0-51.0); MEAN CORPUSCULAR HEMOGLOBIN 29.8 pg (29.0-33.0); MEAN CORPUSCULAR HGB CONC 33.1 g/dl (32.0-37.0); MEAN CORPUSCULAR VOLUME 89.9 fl (82.0-101.0); MEAN PLATELET VOLUME 9.3 fl (7.4-10.4); MONOCYTES % 10.5 % (0.0-11.0); NEUTROPHIL # 7.5 10^3/ul (1.6-7.5); NEUTROPHILS % 76.7 % (39.0-77.0); PLATELET COUNT 301 10^3/UL (140-415); RED BLOOD COUNT 5.44 10^6/ul (4.70-6.10); RED CELL DISTRIBUTION WIDTH 14.8 % (11.5-14.5); WHITE BLOOD COUNT 9.8 10^3/ul (4.8-10.8)
[2016-08-22 08:40] LABS: POTASSIUM 3.2 mmol/L (3.5-5.1)
[2016-08-22] MEDS: HEPARIN 5,000 UNIT/0.5 ML VIAL SC SCH (08:41)
[2016-08-22 08:43] LABS: CREATININE 1.02 mg/dl (0.61-1.24)
[2016-08-22 08:44] LABS: CALCIUM 8.7 mg/dl (8.4-10.2)
[2016-08-22] MEDS ORDERED: POTASSIUM CHLORIDE (SR) 20 MEQ TAB PO STA (10:26)
--- NOTE | 2016-08-22 10:33 | PDOCDIS ---
Discharge Instructions CONDITION Patient Condition: Stable HOME CARE INSTRUCTIONS: Special Diet: low fat lowchol ACTIVITY: Activity Restrictions: Slowly Increase Activity FOLLOW UP/APPOINTMENTS Appointments Please take your medications as prescribed, and follow up with your primary doctor in the clinic in 1-2 weeks. SUPA BARDALES Aug 22, 2016 10:33
[2016-08-22] MEDS ORDERED: BENA20TA48 PO (10:36)
[2016-08-22] MEDS ORDERED: CLOP75TA28 PO (10:36)
[2016-08-22] MEDS ORDERED: FURO40TA4 PO (10:36)
[2016-08-22] MEDS ORDERED: METO-448 PO (10:36)
[2016-08-22] MEDS ORDERED: ATOR20TA65 PO (10:36)
[2016-08-22] MEDS ORDERED: LEVO750T25 PO (10:36)
--- NOTE | 2016-08-22 10:55 | DS ---
DATE OF ADMISSION: 08/19/2016 DATE OF DISCHARGE: 08/22/2016 HOSPITAL COURSE: This is a 65-year-old male originally admitted on 08/19/2014 being discharged home on 08/22/2016 pending approval from cardiology team on 08/22/2016. The patient came in with chest pain and shortness of breath. He was admitted to telemetry floor. He was ruled out for acute coron kiet syndrome. He was also found with signs of upper respiratory infection, pneumonia, and also CHF exacerbation. He was admitted, given diuresis. He also had hypertensive urgency. He was given ant ibiotics as well as blood pressure medicines. He was seen by cardiology team, underwent cardiac nuc lear stress test which was negative. Specifically, he had no acute Lexiscan-induced ST or T-wave ch anges from baseline. No complaints of shortness of breath during the stress test, positive prematur e ventricular contractions during stress test, the nuclear portion of the test showed no evidence of any stress-induced ischemia. There was some mild to moderate hypokinesis of the left ventricle. E F at stress was 37%. Over the course of hospital stay, the patient's shortness of breath, chest hardy n symptoms improved. His leukocytosis resolved. His cultures were negative. He was able to ambula te and tolerate a p.o. diet. His blood pressure was stable, and if we get clearance from cardiology team, he will be discharged home today in improved condition. DISCHARGE MEDICATIONS: If he goes today, he will be sent with 1. Atorvastatin 20 mg daily. 2. Benazepril 20 mg b.i.d. 3. Plavix 75 mg daily. 4. Levaquin 750 mg p.o. daily for 5 days. 5. Lopressor 25 mg b.i.d. 6. Aspirin 81 mg daily. 7. Lasix 40 mg daily. He will need to follow up with primary care doctor in the clinic in the next 1 week. FINAL DIAGNOSES: 1. Shortness of breath secondary to congestive heart failure and pneumonia, now improved. 2. Hypertensive urgency, resolved. 3. History of coronary artery disease with NE in the past, on aspirin, Plavix, and Lipitor. 4. High cholesterol on Lipitor. 5. Pulmonary hypertension. 6. Prior congestive heart failure, diastolic, acute on chronic, improved. Time spent discharging the patient: 45 minutes. Dictated By: SUPA MIKE Conf#: [id number] DID#: [id number]
--- NOTE | 2016-08-22 12:32 | CONS ---
Date/Time of Note Date/Time of Note DATE: 08/22/16 TIME: 12:30 Assessment/Plan Assessment/Plan Chief Complaint/Hosp Course IMPRESSION: 1. Chest pain, assess for acute coronary syndrome.-negative troponin x 3. lexiscan negative for ischemia 2. Abnormal electrocardiogram with deep T-wave inversions across the anterolateral precordial leads. 3. Hypertension urgency/emergency. 4. History of a percutaneous transluminal coronary angioplasty to diagonal 2015. 5. Probable pneumonia. 6. Mild leukocytosis. 7.Possible CHF-systolic acute on chronic by echo this admit with EF 40-45 Recc: -Tele -serial ecg's -Continue ACEI -Continue statin -Continue asa/plavix -Continue lasix -Start BB Problems: Consultation Date/Type/Reason Admit Date/Time Aug 19, 2016 at 15:20 Initial Consult Date 08/20/2016 Type of Consultation: Cardiology Reason for Consultation Chest pain/cardiomyopathy Referring Provider: SUPA BARDALES Exam/Review of Systems Vital Signs Vitals Vital Signs Date Time Temp Pulse Resp B/P Pulse Ox O2 Delivery O2 Flow Rate FiO2 08/22/16 12:24 95 08/22/16 11:44 97.9 20 137/73 95 08/21/16 13:00 Room Air 08/19/16 22:30 2.0 Intake and Output 08/21/16 08/21/16 08/22/16 15:00 23:00 07:00 Intake Total 1150 ml 300 ml Output Total 100 ml 300 ml Balance 1050 ml 0 ml Exam Review of Systems: CONSTITUTIONAL: No fevers, chills. PULMONARY: No sob CARDIOVASCULAR: No chest pain/palpitations GASTROINTESTINAL: No nausea/vomiting. GENITOURINARY: No hematuria/dysuria. MUSCULOSKELETAL: No myagias/arthalgias. PSYCHIATRIC: The patient denies depression. NEUROLOGIC: No weakness Constitutional: alert Psych: no complaints Head: normocephalic ENMT: mucosa pink and moist Neck: jvd (9 cm water), supple Respiratory: diminished breath sounds (at bases/B) Cardiovascular: regular rate and rhythm Gastrointestinal: non-tender, soft Musculoskeletal: muscle tone (normal) Extremities: edema (nonr) Neurological: other (No focal deficits) Results Result Diagram: 08/22/16 0758 08/22/16 0758 Results 24 hrs Laboratory Tests Test 08/22/16 07:58 White Blood Count 9.8 Red Blood Count 5.44 Hemoglobin 16.2 Hematocrit 48.9 Mean Corpuscular Volume 89.9 Mean Corpuscular Hemoglobin 29.8 Mean Corpuscular Hemoglobin Concent 33.1 Red Cell Distribution Width 14.8 H Platelet Count 301 Mean Platelet Volume 9.3 Neutrophils % 76.7 Lymphocytes % 10.6 L Monocytes % 10.5 Eosinophils % 1.4 Basophils % 0.6 Nucleated Red Blood Cells % 0.0 Neutrophils # 7.5 Lymphocytes # 1.0 Monocytes # 1.0 H Eosinophils # 0.1 Basophils # 0.1 Nucleated Red Blood Cells # 0.0 Sodium Level 138 Potassium Level 3.2 L Chloride Level 98 Carbon Dioxide Level 28 Anion Gap 15 Blood Urea Nitrogen 27 H Creatinine 1.02 Glucose Level 106 Calcium Level 8.7 Medications Medications Current Medications Ondansetron HCl (Zofran Inj) 4 mg Q6H PRN IV NAUSEA AND/OR VOMITING; Start at 16:00 Acetaminophen (Tylenol Tab) 650 mg Q6H PRN PO PAIN LEVEL 1-3 OR FEVER; Start at 16:00 Acetaminophen/ Hydrocodone Bitart ([place] (5/325)) 1 tab Q6H PRN PO MODERATE PAIN LEVEL 4-6; Start 08/19/16 at 16:00 Morphine Sulfate (morphine) 2 mg Q4H PRN IV SEVERE PAIN LEVEL 7-10 Last administered on 08/20/16 16:12; Admin Dose 2 MG; Start 08/19/16 at 16:00 Docusate Sodium (Colace) 100 mg Q12H PRN PO CONSTIPATION; Start 08/19/16 at 16: 00 Magnesium Hydroxide (Milk Of Mag) 30 ml DAILY PRN PO CONSTIPATION; Start at 16:00 Sodium Biphosphate/ Sodium Phosphate (Fleet Enema) 133 ml DAILY PRN [place] CONSTIPATION; Start 08/19/16 at 16:00 Heparin Sodium (Porcine) (Heparin (5000 Units/0.5 ml)) 5,000 unit Q12 SC Last administered on 08/22/16 08:41; Admin Dose 5,000 UNIT; Start 08/19/16 at 21:00 Lorazepam (Ativan) 0.5 mg Q6H PRN IV ANXIETY Last administered on 08/21/16 19: 05; Admin Dose 0.5 MG; Start 08/19/16 at 16:00 Nitroglycerin (Nitroglycerin (Sl Tab) 0.4 Mg) 1 tab Q5M PRN SL ANGINA; Start at 16:00 Clopidogrel Bisulfate (plaVIX) 75 mg DAILY PO Last administered on 08/22/16 08 :29; Admin Dose 75 MG; Start 08/20/16 at 09:00 Guaifenesin/ Codeine Phosphate (Robitussin Ac Liquid Cup) 5 ml Q4H PRN PO COUGH ; Start 08/19/16 at 16:00 Aspirin 162 mg 162 mg DAILY PO Last administered on 08/22/16 08:30; Admin Dose 162 MG; Start 08/20/16 at 09:00 Ceftriaxone Sodium 50 ml @ 100 mls/hr DAILY@1530 IVPB Last administered on 15:13; Admin Dose 100 MLS/HR; Start 08/20/16 at 15:30 Azithromycin (Zithromax 500mg/ NS (Pmx)) 250 ml @ 250 mls/hr DAILY@16 IVPB Last administered on 08/21/16 16:11; Admin Dose 250 MLS/HR; Start 08/20/16 at 16:00 Hydralazine HCl (Apresoline) 10 mg Q4H PRN IV SBP > 160 Last administered on 07:49; Admin Dose 10 MG; Start 08/20/16 at 03:00 Atorvastatin Calcium (Lipitor) 20 mg DAILY@21 PO Last administered on 20:23; Admin Dose 20 MG; Start 08/20/16 at 21:00 Benazepril HCl (Lotensin) 20 mg BID PO Last administered on 08/22/16 08:30; Admin Dose 20 MG; Start 08/20/16 at 21:00 Zolpidem Tartrate (Ambien) 10 mg HS PRN PO INSOMNIA; Start 08/20/16 at 23:30 Metoprolol Tartrate (Lopressor) 25 mg BID PO Last administered on 08/22/16 08: 30; Admin Dose 25 MG; Start 08/21/16 at 12:30 ROXANN NO Aug 22, 2016 12:32
--- NOTE | 2016-08-23 14:59 | RADRPT ---
Vent Rate: 93 bpm RR Interval: 0 msec [place] Interval: 156 msec QRS Duration: 114 msec QT Interval: 394 msec QTC Interval: 489 msec P-R-T [place]: 67 - -38 - 177 degrees Sinus rhythm with occasional premature ventricular complexes Biatrial enlargement Left axis deviation Pulmonary disease pattern ST amp; T wave abnormality, consider inferior ischemia ST amp; T wave abnormality, consider anterolateral ischemia Prolonged QT Abnormal ECG Electronically Signed By: Tad Robertson [id number]
== END 2016-08-22 13:51 | disposition home or self-care (01) | DRG 291 ==
LOC: E/R 12:44 → TEL 15:20
PROVIDERS: ADMIT Family Medicine; ATTEND Family Medicine
DX: I11.0 Hypertensive heart disease with heart failure (principal); J18.9 Pneumonia, unspecified organism; E87.2 Acidosis; I50.43 Acute on chronic combined systolic (congestive) and diastolic (congestive) heart failure; I16.0 Hypertensive urgency; I25.10 Atherosclerotic heart disease of native coronary artery without angina pectoris; F10.10 Alcohol abuse, uncomplicated; F12.10 Cannabis abuse, uncomplicated; E78.5 Hyperlipidemia, unspecified; I25.2 Old myocardial infarction; Z79.82 Long term (current) use of aspirin; Z79.02 Long term (current) use of antithrombotics/antiplatelets; Z98.61 Coronary angioplasty status; Z87.891 Personal history of nicotine dependence
CPT/HCPCS: 36415; 71010; 78452; 80048; 80061; 82550; 82553; 83036; 83605; 83880; 84439; 84443; 84484; 85025; 85610; 85730; 87040; 93005; 93017; 93306; 96365; 96372; 96375; 96376; A9500; A9505; J0360; J0456; J0696; J1644; J1940; J2060; J2270; J2785; J3370; J7030; J7040

== ENCOUNTER 2016-10-28 17:28 | Inpatient (IN) | payer MEDICARE, OTHER ==
[~2016-10-28] VITALS: Ht 165.1 cm; Wt 81.9 kg
[~2016-10-28 17:28] MED LIST changes: -AMLO-145 PO; -ATOR10TA65 PO; +ATOR20TA65 PO; +BENA20TA48 PO; -CLOP75TA27 PO; +CLOP75TA28 PO; +LEVO750T25 PO; -LOSA50TA2 PO; +METO-448 PO; -SPIR25TA PO; -UDROBAC PO
[2016-10-28] MEDS ORDERED: SOD CHLORIDE 0.9% 500 ML IV STA (17:42)
[2016-10-28] MEDS ORDERED: NITROGLYCERIN (SL) 0.4 MG TAB ONE (17:48)
[2016-10-28] MEDS ORDERED: ATROPINE 1 MG/10 ML SYRINGE ONE (17:49)
[2016-10-28] MEDS ORDERED: LABETALOL 100MG INJ ONE (17:49)
[2016-10-28] MEDS ORDERED: ASPIRIN 81 MG TAB ONE (17:52)
[2016-10-28 17:57] LABS: ADD SCAN DIFF NO
[2016-10-28 17:58] LABS: BASOPHIL # 0.1 10^3/ul (0.0-0.1); BASOPHILS % 0.7 % (0.0-2.0); EOSINOPHILS # 0.6 10^3/ul (0.0-0.5); EOSINOPHILS % 4.2 % (0.0-7.0); HEMATOCRIT 40.5 % (42.0-52.0); HEMOGLOBIN 13.8 g/dl (14.0-18.0); LYMPHOCYTES # 3.3 10^3/ul (0.8-2.9); LYMPHOCYTES % 23.4 % (15.0-51.0); MEAN CORPUSCULAR HEMOGLOBIN 30.2 pg (29.0-33.0); MEAN CORPUSCULAR HGB CONC 34.1 g/dl (32.0-37.0); MEAN CORPUSCULAR VOLUME 88.6 fl (82.0-101.0); MEAN PLATELET VOLUME 8.4 fl (7.4-10.4); MONOCYTE # 1.1 10^3/ul (0.3-0.9); MONOCYTES % 7.8 % (0.0-11.0); NEUTROPHILS % 63.5 % (39.0-77.0); PLATELET COUNT 326 10^3/UL (140-415); RED BLOOD COUNT 4.57 10^6/ul (4.70-6.10); RED CELL DISTRIBUTION WIDTH 14.6 % (11.5-14.5); WHITE BLOOD COUNT 14.2 10^3/ul (4.8-10.8)
[2016-10-28] MEDS ORDERED: LABETALOL HCL 20MG INJ IV ONE (18:00)
--- NOTE | 2016-10-28 18:01 | RADRPT ---
PROCEDURE: XR Chest. CLINICAL INDICATION: Chest pain. TECHNIQUE: Single frontal view. COMPARISON: 08/19/2016. FINDINGS: The lungs are clear. The heart is mildly enlarged. There is no pleural effusion. There is no pneumothorax. IMPRESSION: 1. Mild cardiomegaly. 2. Otherwise normal chest x-ray. RPTAT: QQ .Jose Maria Comer MD, MD Date Time Electronically viewed and signed by .Jose Maria Comer MD, MD on 10/28/2016 18:01 .R/
[2016-10-28 18:13] LABS: INR 0.91; PROTIME 12.3 Sec (12.2-14.2)
[2016-10-28 18:14] LABS: PARTIAL THROMBOPLASTIN TIME 23.5 Sec (25.0-35.0)
[2016-10-28 18:15] LABS: CALCIUM 9.8 mg/dl (8.4-10.2); CREATININE 1.97 mg/dl (0.61-1.24); POTASSIUM 4.7 mmol/L (3.5-5.1)
[2016-10-28] MEDS ORDERED: HEPARIN 25000 UNITS/250 ML 250 ML IV STA (18:15)
[2016-10-28] MEDS ORDERED: NITROGLYCERIN 50 MG/D5W (PMX) 250 ML IV STA (18:15)
--- NOTE | 2016-10-28 18:24 | EN ---
Date/Time of Note Date/Time of Note DATE: 10/28/16 TIME: 18:20 Event Note Cardiology Cardiology Event Note Called to emergency room for code STEMI. 66-year-old male was seen in Dr. Cheung office today complaining of chest pain and sent to the emergency room. Initially, patient systolic blood pressure over 260 and complaining of severe chest pain. Initial ECG done at 1800 demonstrated sinus tachycardia [address] depressions and borderline ST elevation in aVR. Patient was given nitroglycerin and labetalol IV secondary to hypertension. Currently systolic blood pressure down to 190 and patient is chest pain-free. ECG done at 1813 demonstrates sinus tachycardia 107 bpm, significant improvement in ST depressions in inferior and lateral leads as well as no further ST elevations in aVR. Discussed with patient's intern brand Dr. Cheung, patient currently chest pain-free with improvement in ST depressions. Code STEMI was called off. His cardiology care will be continued by his intern brand Dr. Cheung. Tad Robertson DO Oct 28, 2016 18:24
[2016-10-28 18:28] LABS: TROPONIN-I 0.038 ng/ml (0.00-0.12)
[2016-10-28 18:33] VITALS: TEMP 98.9
--- NOTE | 2016-10-28 18:55 | ERA ---
ER Documentation Chief Complaint Date/Time DATE: 10/28/16 TIME: 18:50 Chief Complaint cp onset 1/2 hr ago, sob HPI This is a 66-year-old male with a history of hypertension, previous CAD with stent placement who presents to the emergency room for evaluation of chest pain. This patient also states that he is having mild shortness of breath. This patient was seen at his rim roller operator's office, Dr. Cheung, and was sent to the emergency room for further evaluation. When I evaluated this patient he is staining he had substernal chest pain which is sharp in nature and short of breath. The patient had not had any aspirin today, and was brought to the emergency room for further evaluation. ROS All systems reviewed and are negative except as per history of present illness. Medications Home Meds Active Scripts Levofloxacin* (Levaquin*) 750 Mg Tablet, 750 MG PO DAILY for 5 Days, TAB Prov:SUPA BARDALES S. 08/22/16 Metoprolol Tartrate* (Lopressor*) 25 Mg Tab, 25 MG PO BID, #60 TAB 2 Refills Prov:SUPA BARDALES S. 08/22/16 Benazepril Hcl* (Benazepril Hcl*) 20 Mg Tablet, 20 MG PO BID, #60 TAB 3 Refills Prov:SUPA BARDALES S. 08/22/16 Atorvastatin Calcium (Atorvastatin Calcium) 20 Mg Tablet, 20 MG PO DAILY@21, # 30 TAB 2 Refills Prov:ASIF BARDALESP S. 08/22/16 Clopidogrel Bisulfate (Clopidogrel) 75 Mg Tablet, 75 MG PO DAILY, #30 TAB 6 Refills Prov:SUPA BARDALES S. 08/22/16 Furosemide (Lasix) 40 Mg Tab, 40 MG PO DAILY, #30 TAB 2 Refills Prov:SUPA BARDALES S. 08/22/16 Aspirin* (Aspirin* EC) 81 Mg Tablet., 81 MG PO DAILY, #30 2 Refills Prov:ISIS GRAMAJO MD 01/16/16 Allergies Allergies: Coded Allergies: No Known Allergy (Unverified , 01/12/16) PMhx/Soc Medical and Surgical Hx: pt denies Surgical Hx History of Surgery: No Anesthesia Reaction: No Hx Neurological Disorder: No Hx Respiratory Disorders: No Hx Cardiac Disorders: Yes (Angioplasty, HTN) Hx Psychiatric Problems: No Hx Miscellaneous Medical Probl: No Hx Alcohol Use: Yes Hx Substance Use: No (vape marijuana) Hx Tobacco Use: No Smoking Status: Never smoker Physical Exam Vitals Vital Signs Date Time Temp Pulse Resp B/P Pulse Ox O2 Delivery O2 Flow Rate FiO2 10/28/16 18:33 98.9 97 19 183/124 100 Nasal Cannula 2.0 10/28/16 18:28 Nasal Cannula 2 10/28/16 17:36 98.1 131 24 269/176 99 Physical Exam INITIAL VITAL SIGNS: Reviewed by me GENERAL: The patient is well developed appears to be in moderate distress HEENT: Pupils equal, round, and reactive to light. EOMI. There is no scleral icterus. NECK: C-spine is soft and supple, there is no meningismus. There is no cervical lymphadenopathy. LUNGS: Clear to auscultation bilaterally. There are no rales, wheezes or rhonchi. HEART: Tachycardic, no murmurs, clicks, rubs or gallops. ABDOMEN: Soft, non-tender, non-distended. There are bowel sounds in all four quadrants. No rebound or guarding. EXTREMITIES: There is no peripheral cyanosis or edema. No focal swelling or erythema. NEUROLOGICAL: The patient moves all four extremities with 5/5 strength. Cranial nerves II - XII are intact. Normal gait. Alert and oriented SKIN: Maculopapular rash noted diffusely over body there is no apparent rash or petechiae. HEME/LYMPHATIC: There is no evidence of excessive bruising or lymphedema. PSYCHIATRIC: The patient does not appear anxious or depressed. Result Diagram: 10/28/16174910/28/161749 Results 24 hrs Laboratory Tests Test 10/28/16 17:50 White Blood Count 14.210^3/ul Red Blood Count 4.5710^6/ul Hemoglobin 13.8g/dl Hematocrit 40.5% Mean Corpuscular Volume 88.6fl Mean Corpuscular Hemoglobin 30.2pg Mean Corpuscular Hemoglobin Concent 34.1g/dl Red Cell Distribution Width 14.6% Platelet Count 58005^3/UL Mean Platelet Volume 8.4fl Neutrophils % 63.5% Lymphocytes % 23.4% Monocytes % 7.8% Eosinophils % 4.2% Basophils % 0.7% Nucleated Red Blood Cells % 0.0/100WBC Neutrophils # 9.010^3/ul Lymphocytes # 3.310^3/ul Monocytes # 1.110^3/ul Eosinophils # 0.610^3/ul Basophils # 0.110^3/ul Nucleated Red Blood Cells # 0.010^3/ul Prothrombin Time 12.3Sec Prothrombin Time Ratio 1.0 INR International Normalized Ratio 0.91 Activated Partial Thromboplast Time 23.5Sec Sodium Level 137mmol/L Potassium Level 4.7mmol/L Chloride Level 103mmol/L Carbon Dioxide Level 19mmol/L Anion Gap 20 Blood Urea Nitrogen 42mg/dl Creatinine 1.97mg/dl Glucose Level 123mg/dl Calcium Level 9.8mg/dl Troponin I 0.038ng/ml B-Type Natriuretic Peptide 1210PG/ML Current Medications Medications (Trade) Dose Ordered Sig/Mamadou Route PRN Reason Start Time Stop Time Status Last Admin Dose Admin Sodium Chloride (NS) 500 ml @ 500 mls/hr Q1H STAT IV 10/28/16 17:42 10/28/16 18:41 DC 10/28/16 18:24 Nitroglycerin (Nitroglycerin (Sl Tab) 0.4 Mg) 25 tab STK-MED ONCE .ROUTE 10/28/16 17:48 10/28/16 17:49 DC Labetalol HCl (Labetalol) 10 mg ONCE ONCE IV 10/28/16 18:00 10/28/16 18:01 DC 10/28/16 18:23 Atropine Sulfate (Atropine (Syringe)) 1 mg STK-MED ONCE .ROUTE 10/28/16 17:49 10/28/16 17:50 DC Labetalol HCl (Normodyne) 100 mg STK-MED ONCE .ROUTE 10/28/16 17:49 10/28/16 17:50 DC Aspirin 81 mg 81 mg STK-MED ONCE .ROUTE 10/28/16 17:52 10/28/16 17:53 DC Nitroglycerin/ Dextrose 250 ml @ 6 mls/hr ONCE STAT IV 10/28/16 18:15 10/30/16 11:54 Heparin Sodium (Porcine) (Heparin 85434 Units/250 ml) 250 ml @ 0 mls/hr ONCE STAT IV 10/28/16 18:15 10/28/16 18:18 DC Procedures/MDM EKG: Rate/Rhythm: Sinus tachycardia QRS, ST, T-waves: [No changes consistent w/ acute ischemia] Impression: Nonspecific T wave and ST abnormalities, abnormal EKG:#2 Rate/Rhythm: Sinus tachycardia QRS, ST, T-waves: [No changes consistent w/ acute ischemia] Impression: Nonspecific T wave and ST abnormalities, abnormal This 66-year-old male presents to the emergency room for evaluation of chest pain or shortness of breath. When I evaluated this patient he was in moderate distress, and was tachycardic with a heart rate of 135 bpm. His blood pressure was 262/161. The patient was complaining of substernal chest pain. The patient was immediately placed on oxygen, and was given a full dose aspirin 325 mg. The patient was given a sublingual nitro as well. I did give the patient 10 mg of labetalol and a repeat EKG did show ST elevations in aVR. I did call a code STEMI. On-call rim roller operator, Dr. Robertson is at bedside and has I discussed the case with patient's rim roller operator Dr. Cheung who agrees to take the patient to the Service Order Dispatcher Chief tomorrow. This patient's pain on my reevaluation is a 1 out of 10. His blood pressure is now 170/99 and heart rate is 104 bpm. Repeat EKG does not show any signs of ST elevation however given this patient's age, severity of symptoms and previous cardiac history he will be placed on a heparin and nitroglycerin drip for unstable angina. The patient will be placed in the ICU at this time under the care of Dr. king Cardiac Critical Care: Excluding all billable procedures Time: 32 minutes Treatments/Evaluations: Close monitoring for dangerous arrhythmia and cardiovascular collapse, while treating with advance cardiac medications and techniques. Departure Diagnosis: Primary Impression: Unstable angina Additional Impressions: Dermatitis, unspecified Renal insufficiency Chest pain Condition: Serious FREDYELEANORSHEYLA METCALF Oct 28, 2016 18:55
[2016-10-28] MEDS ORDERED: morphine 4 MG/ML VIAL ONE (19:12)
[2016-10-28] MEDS ORDERED: SPIR25TA PO (19:17)
[2016-10-28] MEDS ORDERED: ASPI-664 PO (19:17)
[2016-10-28] MEDS ORDERED: METO-429 PO (19:18)
[2016-10-28] MEDS ORDERED: BENA40TA41 PO (19:18)
[2016-10-28] MEDS ORDERED: morphine 4 MG/ML VIAL IV STA (19:18)
[2016-10-28] MEDS ORDERED: ISOS30TA5 PO (19:27)
[2016-10-28] MEDS ORDERED: HEPARIN 1000 UNITS/ML 10 ML INJ IV PRN ×2 (21:00→21:30)
[2016-10-28] MEDS ORDERED: morphine 2 MG INJ IV PRN (21:00)
[2016-10-28] MEDS ORDERED: ONDANSETRON 4 MG INJ IV PRN (21:00)
[2016-10-28] MEDS ORDERED: HEPARIN 25000 UNITS/250 ML 250 ML IV SCH (21:00)
--- NOTE | 2016-10-28 21:02 | HP ---
Date/Time of Note Date/Time of Note DATE: 10/28/16 TIME: 20:41 Assessment/Plan VTE Prophylaxis VTE Prophylaxis Intervention: heparin Lines/Catheters IV Catheter Type (from Nrsg): Saline Lock Assessment/Plan Assessment/Plan 66-year-old male who was sent to us from the income tax return preparer's office because of chest pain and elevated blood pressures managed for the followin. Chest pain with EKG concerns for ST elevation myocardial infarction 2. Hypertensive emergencies 3. Acute kidney injury rule out chronic kidney disease 4. Known coronary artery disease status post PCI to December 2015 5. Known CHF with chronic ischemic cardiomyopathy with last EF of 37% without acute exacerbation 7. Chronic normocytic anemia 8. Reactive leukocytosis 9. Fatty liver 10. Heavy marijuana as well as alcohol use 11. Dyslipidemia PLAN: Patient is being admitted to the intensive care unit on the heparin drip until definitive intervention per cardiology, we will defer to them for further management In the interim we will continue supportive care with pain control, supplemental oxygen, nitrates and BB therapy, and blood pressure lowering modalities. Resume all previous home meds except diuretics because of [place], closely monitor renal as well as hemoglobin function. N.p.o. for now in case of cardiac intervention, Further interventions per clinical course. Prophylaxis: PPI/heparin drip HPI/ROS Admit Date/Time Admit Date/Time 10/28/16 Hx of Present Illness 66-year-old male who was sent to the emergency room from his income tax return preparer, Dr. Cheung office because of severely elevated blood pressure and chest pain. Chest pain was associated with some shortness of breath, and he had abnormal EKG findings concerning for ST depressions and a borderline ST elevation. A code STEMI was called which was later canceled after the patient responded to aggressive antihypertension, nitroglycerin therapy. He is being admitted to the intensive care unit for further management. ROS 12 point review if systems was done and pertinent findings are as noted. PMH/Family/Social Past Medical History 1. Hypertension 2. Coronary artery disease status post PCI to 12/2015 3. Chronic CHF with last known ejection fraction of 40-45% 4. Chronic Vapo marijuana user 5. Dyslipidemia 6. Heavy alcohol use Past Surgical History * Hand surgery Family History Significant Family History: heart disease (in his father), other Social History Alcohol Use: heavy Smoking Status: Current every day smoker (of marijuana) Drug Use: marijuana Exam/Review of Systems Vital Signs Vitals VS - Last 72 Hours, by Label Date Time Temp Pulse Resp B/P Pulse Ox O2 Delivery O2 Flow Rate FiO2 10/28/16 18:33 98.9 97 19 183/124 100 Nasal Cannula 2.0 10/28/16 18:28 Nasal Cannula 2 10/28/16 17:36 98.1 131 24 269/176 99 Vital Signs Date Time Temp Pulse Resp B/P Pulse Ox O2 Delivery O2 Flow Rate FiO2 10/28/16 18:33 98.9 97 19 183/124 100 Nasal Cannula 2.0 Exam Exam Constitutional: alert, oriented Head: atraumatic, normocephalic Neck: non-tender, supple Respiratory: clear to auscultation Cardiovascular: regular rate and rhythm Gastrointestinal: nl liver, spleen, non-tender, soft Extremities: normal pulses Labs Result Diagram: 10/28/16 1750 10/28/16 1750 Procedures Procedures Laboratory Tests Test 10/28/16 17:50 White Blood Count 14.210^3/ul Red Blood Count 4.5710^6/ul Hemoglobin 13.8g/dl Hematocrit 40.5% Mean Corpuscular Volume 88.6fl Mean Corpuscular Hemoglobin 30.2pg Mean Corpuscular Hemoglobin Concent 34.1g/dl Red Cell Distribution Width 14.6% Platelet Count 88245^3/UL Mean Platelet Volume 8.4fl Neutrophils % 63.5% Lymphocytes % 23.4% Monocytes % 7.8% Eosinophils % 4.2% Basophils % 0.7% Nucleated Red Blood Cells % 0.0/100WBC Neutrophils # 9.010^3/ul Lymphocytes # 3.310^3/ul Monocytes # 1.110^3/ul Eosinophils # 0.610^3/ul Basophils # 0.110^3/ul Nucleated Red Blood Cells # 0.010^3/ul Prothrombin Time 12.3Sec Prothrombin Time Ratio 1.0 INR International Normalized Ratio 0.91 Activated Partial Thromboplast Time 23.5Sec Sodium Level 137mmol/L Potassium Level 4.7mmol/L Chloride Level 103mmol/L Carbon Dioxide Level 19mmol/L Anion Gap 20 Blood Urea Nitrogen 42mg/dl Creatinine 1.97mg/dl Glucose Level 123mg/dl Calcium Level 9.8mg/dl Troponin I 0.038ng/ml B-Type Natriuretic Peptide 1210PG/ML Current Medications Medications (Trade) Dose Ordered Sig/Mamadou Route PRN Reason Start Time Stop Time Status Last Admin Dose Admin Sodium Chloride (NS) 500 ml @ 500 mls/hr Q1H STAT IV 10/28/16 17:42 10/28/16 18:41 DC 10/28/16 18:24 500 MLS/HR Nitroglycerin (Nitroglycerin (Sl Tab) 0.4 Mg) 25 tab STK-MED ONCE .ROUTE 10/28/16 17:48 10/28/16 17:49 DC Labetalol HCl (Labetalol) 10 mg ONCE ONCE IV 10/28/16 18:00 10/28/16 18:01 DC 10/28/16 18:23 10 MG Atropine Sulfate (Atropine (Syringe)) 1 mg STK-MED ONCE .ROUTE 10/28/16 17:49 10/28/16 17:50 DC Labetalol HCl (Normodyne) 100 mg STK-MED ONCE .ROUTE 10/28/16 17:49 10/28/16 17:50 DC Aspirin 81 mg 81 mg STK-MED ONCE .ROUTE 10/28/16 17:52 10/28/16 17:53 DC Nitroglycerin/ Dextrose 250 ml @ 6 mls/hr ONCE STAT IV 10/28/16 18:15 10/30/16 11:54 10/28/16 18:48 6 MLS/HR Heparin Sodium (Porcine) (Heparin 85755 Units/250 ml) 250 ml @ 0 mls/hr ONCE STAT IV 10/28/16 18:15 10/28/16 18:18 DC 10/28/16 18:50 10 MLS/HR Morphine Sulfate (morphine) 4 mg STK-MED ONCE .ROUTE 10/28/16 19:12 10/28/16 19:13 DC Morphine Sulfate (morphine) 4 mg ONCE STAT IV 10/28/16 19:18 10/28/16 19:20 DC 10/28/16 19:25 4 MG PROCEDURE: XR Chest. CLINICAL INDICATION: Chest pain. TECHNIQUE: Single frontal view. COMPARISON: 08/19/2016. FINDINGS: The lungs are clear. The heart is mildly enlarged. There is no pleural effusion. There is no pneumothorax. IMPRESSION: 1. Mild cardiomegaly. 2. Otherwise normal chest x-ray. RPTAT: QQ .Jose Maria Comer MD, Date Time Electronically viewed and signed by .Jose Maria Comer MD, MD on 10/28/2016 18:01 .R/ CC: ELEUTERIO DANIEL DO PROCEDURE: Lexiscan myocardial perfusion study CLINICAL INDICATION: 65 -year-old patient complaining of chest pain. TECHNIQUE: Lexiscan 0.4 mg intravenously separate acquisition gated myocardial perfusion SPECT using Tc 99m Myoview 33.0 mCi intravenously at stress and Tc-99m Myoview, 10.2 mCi intravenously at rest was performed using the rest/stress sequence. Poststress Myoview SPECT images were obtained in the supine position. COMPARISON: No prior studies. FINDINGS: Perfusion images reveal mild nonreversible perfusion abnormality in the inferior wall. Lexiscan post stress gated SPECT images demonstrate mild to moderate hypokinesis of the left ventricle. IMPRESSION: 1. No evidence of stress-induced ischemia. 2. Mild to moderate hypokinesis of the left ventricle. 3. The left ventricle ejection fraction at stress is 37%. RPTAT: QQ .Katalina Mederos MD, MD Date Time Electronically viewed and signed by .Kaatlina Mederos MD, on 08/21/2016 16:50 .L/ CC: ROXANN CHEUNG BOLATITO M. Oct 28, 2016 21:01
[2016-10-29] VITALS (68 sets, daily range): BP systolic 105–159; BP diastolic 39–97; PULSE 58–101; RESP 8–31; Ht 165.1 cm; Wt 81.9 kg
[2016-10-29] MEDS: METOPROLOL 50 MG TAB PO SCH ×3 (00:07→20:46)
[2016-10-29] MEDS: DOCUSATE SODIUM 100 MG CAP PO SCH ×3 (00:07→20:45)
[2016-10-29] MEDS: BENAZEPRIL 40 MG TAB PO SCH ×2 (00:08→09:09)
[2016-10-29] MEDS: ATORVASTATIN 20 MG TAB PO SCH ×2 (00:08→20:45)
[2016-10-29 00:38] LABS: CK-MB 6.55 ng/ml (0.0-2.4)
[2016-10-29 00:39] LABS: TROPONIN-I 0.688 ng/ml (0.00-0.12)
[2016-10-29 00:44] LABS: MAGNESIUM 2.1 mg/dl (1.7-2.5); PHOSPHORUS 4.7 mg/dl (2.5-4.9)
[2016-10-29] MEDS: PANTOPRAZOLE 40 MG INJ IV SCH (05:30)
[2016-10-29 05:53] LABS: ADD SCAN DIFF NO
[2016-10-29 05:59] LABS: BASOPHIL # 0.1 10^3/ul (0.0-0.1); BASOPHILS % 0.6 % (0.0-2.0); EOSINOPHILS # 0.5 10^3/ul (0.0-0.5); EOSINOPHILS % 4.8 % (0.0-7.0); HEMATOCRIT 34.6 % (42.0-52.0); HEMOGLOBIN 12.1 g/dl (14.0-18.0); LYMPHOCYTES # 2.8 10^3/ul (0.8-2.9); LYMPHOCYTES % 29.8 % (15.0-51.0); MEAN CORPUSCULAR HEMOGLOBIN 30.9 pg (29.0-33.0); MEAN CORPUSCULAR VOLUME 88.5 fl (82.0-101.0); MEAN PLATELET VOLUME 8.6 fl (7.4-10.4); MONOCYTE # 0.8 10^3/ul (0.3-0.9); MONOCYTES % 8.8 % (0.0-11.0); NEUTROPHIL # 5.3 10^3/ul (1.6-7.5); NEUTROPHILS % 55.6 % (39.0-77.0); PLATELET COUNT 260 10^3/UL (140-415); RED BLOOD COUNT 3.91 10^6/ul (4.70-6.10); RED CELL DISTRIBUTION WIDTH 15.2 % (11.5-14.5); WHITE BLOOD COUNT 9.5 10^3/ul (4.8-10.8)
[2016-10-29 06:18] LABS: CALCIUM 8.5 mg/dl (8.4-10.2); CREATININE 1.42 mg/dl (0.61-1.24); POTASSIUM 4.8 mmol/L (3.5-5.1)
[2016-10-29 06:30] LABS: CK-MB 7.4 ng/ml (0.0-2.4); TROPONIN-I 1.05 ng/ml (0.00-0.12)
[2016-10-29 07:43] LABS: IRON 178 ug/dl (35-150)
[2016-10-29 07:50] LABS: TOTAL IRON BINDING CAPACITY 291 ug/dl (241-421)
[2016-10-29] MEDS ORDERED: SPIRONOLACTONE 25 MG TAB PO SCH (09:00)
[2016-10-29] MEDS ORDERED: ASPIRIN (EC) 81 MG TAB PO SCH (09:00)
[2016-10-29] MEDS: ISOSORBIDE MONONITRATE(SR)30 MG TAB PO SCH (09:07)
[2016-10-29] MEDS: CLOPIDOGREL 75 MG TAB PO SCH (09:07)
[2016-10-29] MEDS ORDERED: OXYCODONE/ACETAMINOPHEN (5/325) TAB PO PRN (12:00)
[2016-10-29] MEDS ORDERED: morphine 2 MG INJ IV PRN (12:00)
[2016-10-29] MEDS ORDERED: ONDANSETRON 4 MG INJ IV PRN (12:00)
[2016-10-29] MEDS ORDERED: AL HYDROX/MG HYDROX/SIMETH 30 ML CUP PO PRN (12:00)
[2016-10-29] MEDS ORDERED: ACETAMINOPHEN 325 MG TAB PO PRN (12:00)
[2016-10-29] MEDS ORDERED: BIVALIRUDIN 250MG /NS 50 ML 50 ML IVPB SCH (12:00)
[2016-10-29] MEDS ORDERED: SOD CHLORIDE 0.9% 1,000 ML IV SCH (12:00)
--- NOTE | 2016-10-29 12:16 | PN ---
Date/Time of Note Date/Time of Note DATE: 10/29/16 TIME: 12:12 Assessment/Plan VTE Prophylaxis VTE Prophylaxis Intervention: heparin Lines/Catheters IV [facility] Type (from [facility] Peripheral IV Urinary Cath still in place: No Assessment/Plan Chief Complaint/Hosp Course 1. Non-STEMI Heparin drip Left heart cath today with Dr. Cheung 2. Hypertensive emergencies-not controlled Continue medical management 3. Acute kidney injury rule out chronic kidney disease: Creatinine improving Monitor, consider nephrology consultation 4. Known coronary artery disease status post PCI to December 2015 5. Known CHF with chronic ischemic cardiomyopathy with last EF of 37% without acute exacerbation 7. Chronic normocytic anemia 8. Reactive leukocytosis 9. Fatty liver 10. Heavy marijuana as well as alcohol use 11. Dyslipidemia Prophylaxis: PPI/heparin drip Problems: Subjective 24 Hr Interval Summary Constitutional: no complaints Exam/Review of Systems Vital Signs Vitals Vital Signs Date Time Temp Pulse Resp B/P Pulse Ox O2 Delivery O2 Flow Rate FiO2 10/29/16 08:00 Nasal Cannula 2.0 10/29/16 08:00 64 10/29/16 08:00 97.5 8 116/73 97 Intake and Output 10/28/16 10/28/16 10/29/16 14:59 22:59 06:59 Intake Total 500 ml 99.9 ml Balance 500 ml 99.9 ml Exam Constitutional: alert Respiratory: clear to auscultation Cardiovascular: regular rate and rhythm Gastrointestinal: soft, No distended Musculoskeletal: nl extremities to inspection Results Result Diagram: 10/29/16 0520 10/29/16 0520 Results 24 hrs Laboratory Tests Test 10/28/16 17:50 10/28/16 23:50 10/29/16 01:17 10/29/16 05:20 White Blood Count 14.2 #H 9.5 # Red Blood Count 4.57 L 3.91 L Hemoglobin 13.8 L 12.1 L Hematocrit 40.5 L 34.6 L Mean Corpuscular Volume 88.6 88.5 Mean Corpuscular Hemoglobin 30.2 30.9 Mean Corpuscular Hemoglobin Concent 34.1 35.0 Red Cell Distribution Width 14.6 H 15.2 H Platelet Count 326 260 # Mean Platelet Volume 8.4 8.6 Neutrophils % 63.5 55.6 Lymphocytes % 23.4 29.8 Monocytes % 7.8 8.8 Eosinophils % 4.2 4.8 Basophils % 0.7 0.6 Nucleated Red Blood Cells % 0.0 0.0 Neutrophils # 9.0 H 5.3 Lymphocytes # 3.3 H 2.8 Monocytes # 1.1 H 0.8 Eosinophils # 0.6 H 0.5 Basophils # 0.1 0.1 Nucleated Red Blood Cells # 0.0 0.0 Prothrombin Time 12.3 Prothrombin Time Ratio 1.0 INR International Normalized Ratio 0.91 Activated Partial Thromboplast Time 23.5 L 49.5 H Sodium Level 137 135 Potassium Level 4.7 4.8 Chloride Level 103 108 Carbon Dioxide Level 19 L 22 Anion Gap 20 H 10 # Blood Urea Nitrogen 42 H 38 H Creatinine 1.97 H 1.42 H Glucose Level 123 107 Calcium Level 9.8 8.5 Troponin I 0.038 0.688 *H 1.050 *H B-Type Natriuretic Peptide 1210 H Phosphorus Level 4.7 Magnesium Level 2.1 Creatine Kinase 84 85 Creatine Kinase Index 7.8 8.7 Creatinine Kinase MB (Mass) 6.55 H 7.40 H Iron Level 178 H Total Iron Binding Capacity 291 Percent Iron Saturation 61 H Test 10/29/16 07:40 Activated Partial Thromboplast Time 67.7 H Medications Medications Current Medications Pantoprazole (Protonix Iv) 40 mg DAILY@06 IV Last administered on 10/29/16 05: 30; Admin Dose 40 MG; Start 10/29/16 at 06:00 Docusate Sodium (Colace) 100 mg BID PO Last administered on 10/29/16 09:07; Admin Dose 100 MG; Start 10/28/16 at 21:00 Ondansetron HCl (Zofran Inj) 4 mg Q6H PRN IV NAUSEA AND/OR VOMITING; Start 10/28 at 21:00 Morphine Sulfate (morphine) 2 mg Q4H PRN IV pain; Start 10/28/16 at 21:00 Atorvastatin Calcium (Lipitor) 20 mg DAILY@21 PO Last administered on 10/29/16 00:08; Admin Dose 20 MG; Start 10/28/16 at 21:00 Benazepril HCl (Lotensin) 40 mg BID PO Last administered on 10/29/16 09:09; Admin Dose 40 MG; Start 10/28/16 at 21:00 Clopidogrel Bisulfate (plaVIX) 75 mg DAILY PO Last administered on 10/29/16 09: 07; Admin Dose 75 MG; Start 10/29/16 at 09:00 Isosorbide Mononitrate (Imdur) 30 mg DAILY PO Last administered on 10/29/16 09: 07; Admin Dose 30 MG; Start 10/29/16 at 09:00 Metoprolol Tartrate (Lopressor) 50 mg BID PO Last administered on 10/29/16 09: 08; Admin Dose 50 MG; Start 10/28/16 at 21:00 Spironolactone (Aldactone) 25 mg DAILY PO Last administered on 10/29/16 09:08; Admin Dose 25 MG; Start 10/29/16 at 09:00 Aspirin 325 mg 325 mg DAILY PO ; Start 10/30/16 at 09:00 Bivalirudin (Angiomax) 50 ml @ 28.665 mls/ hr Q1H45M IV ; Start 10/29/16 at 12: 00; Stop 10/29/16 at 13:44; Status UNV Acetaminophen (Tylenol Tab) 650 mg Q4H PRN PO NON-CARDIAC PAIN LEVEL 1-3; Start 10/29/16 at 12:00 Oxycodone/ Acetaminophen (Percocet (5/ 325)) 1 tab Q4H PRN PO REPORTED NON- CARDIAC PAIN 4-7; Start 10/29/16 at 12:00; Status UNV Morphine Sulfate (morphine) 1 mg Q1H PRN IV PAIN NOT RELIEVED BY OTHERS; Start 10/29/16 at 12:00; Status UNV Al Hydrox/Mg Hydrox/Simethicone (Mag-Al Plus) 30 ml Q4H PRN PO GASTROINTESTINAL UPSET; Start 10/29/16 at 12:00; Status UNV Ondansetron HCl 4 mg 4 mg Q4H PRN IV NAUSEA AND/OR VOMITING; Start 10/29/16 at 12:00; Status UNV Sodium Chloride (NS) 1,000 ml @ 75 mls/hr [id number] IV ; Start 10/29/16 at 12:00; Stop 10/30/16 at 01:19; Status UNV SKYLER VICTORIA Oct 29, 2016 12:16
--- NOTE | 2016-10-29 16:44 | CONS ---
Date/Time of Note Date/Time of Note DATE: 10/29/16 TIME: 16:37 Assessment/Plan Assessment/Plan Additional Assessment/Plan 1. Renal insuff noted on admit, acute sec to marked elevation of BP and ? vol contraction while on NADEGE/diuretic which has improved today. Thought it best given needed cath today (dye) to stop ARB and aldactone. U/A and Emily ordered. 2. HBP, I added norvasc for BP control 3. CAD, CT, 2 stents placed. Consultation Date/Type/Reason Admit Date/Time 10/28/16 Date of Consultation: Oct 29, 2016 Type of Consultation: Renal Reason for Consultation Acute renal insuff Referring Provider: SKYLER VICTORIA Hx of Present Illness Admitted with chest pain and accelerated HBP and sob with evid of impaired renal fx as Scr 1.0 in 08/09. BP was controlled and ht cath today->2 stents placed. Constitutional: no complaints Respiratory: No cough, No shortness of breath Cardiovascular: No chest pain Gastrointestinal: no complaints Genitourinary: no complaints Musculoskeletal: back pain Neurologic: No headache Past Medical History Medical History: other (Hx CAD, HBP) Past Surgical History Past Surgical Hx: no surgical history Family History Significant Family History: other (per IM) Social History Alcohol Use: heavy Smoking Status: Former smoker Drug Use: marijuana Exam/Review of Systems Vital Signs Vitals Vital Signs Date Time Temp Pulse Resp B/P Pulse Ox O2 Delivery O2 Flow Rate FiO2 10/29/16 13:30 62 11 114/65 95 Nasal Cannula 2.0 10/29/16 12:30 98.2 Intake and Output 10/28/16 10/28/16 10/29/16 15:00 23:00 07:00 Intake Total 500 ml 99.9 ml Balance 500 ml 99.9 ml Exam Neck: No jvd Respiratory: clear to auscultation Cardiovascular: regular rate and rhythm Gastrointestinal: soft, No hepatomegaly, No splenomegaly Extremities: No edema Neurological: No focal weakness Results Result Diagram: 10/29/16 0520 10/29/16 0520 Results 24 hrs Laboratory Tests Test 10/28/16 17:50 10/28/16 23:50 10/29/16 01:17 10/29/16 05:20 White Blood Count 14.2 #H 9.5 # Red Blood Count 4.57 L 3.91 L Hemoglobin 13.8 L 12.1 L Hematocrit 40.5 L 34.6 L Mean Corpuscular Volume 88.6 88.5 Mean Corpuscular Hemoglobin 30.2 30.9 Mean Corpuscular Hemoglobin Concent 34.1 35.0 Red Cell Distribution Width 14.6 H 15.2 H Platelet Count 326 260 # Mean Platelet Volume 8.4 8.6 Neutrophils % 63.5 55.6 Lymphocytes % 23.4 29.8 Monocytes % 7.8 8.8 Eosinophils % 4.2 4.8 Basophils % 0.7 0.6 Nucleated Red Blood Cells % 0.0 0.0 Neutrophils # 9.0 H 5.3 Lymphocytes # 3.3 H 2.8 Monocytes # 1.1 H 0.8 Eosinophils # 0.6 H 0.5 Basophils # 0.1 0.1 Nucleated Red Blood Cells # 0.0 0.0 Prothrombin Time 12.3 Prothrombin Time Ratio 1.0 INR International Normalized Ratio 0.91 Activated Partial Thromboplast Time 23.5 L 49.5 H Sodium Level 137 135 Potassium Level 4.7 4.8 Chloride Level 103 108 Carbon Dioxide Level 19 L 22 Anion Gap 20 H 10 # Blood Urea Nitrogen 42 H 38 H Creatinine 1.97 H 1.42 H Glucose Level 123 107 Calcium Level 9.8 8.5 Troponin I 0.038 0.688 *H 1.050 *H B-Type Natriuretic Peptide 1210 H Phosphorus Level 4.7 Magnesium Level 2.1 Creatine Kinase 84 85 Creatine Kinase Index 7.8 8.7 Creatinine Kinase MB (Mass) 6.55 H 7.40 H Iron Level 178 H Total Iron Binding Capacity 291 Percent Iron Saturation 61 H Test 10/29/16 07:40 Activated Partial Thromboplast Time 67.7 H Medications Medications Current Medications Pantoprazole (Protonix Iv) 40 mg DAILY@06 IV Last administered on 10/29/16 05: 30; Admin Dose 40 MG; Start 10/29/16 at 06:00 Docusate Sodium (Colace) 100 mg BID PO Last administered on 10/29/16 09:07; Admin Dose 100 MG; Start 10/28/16 at 21:00 Morphine Sulfate (morphine) 2 mg Q4H PRN IV pain; Start 10/28/16 at 21:00 Atorvastatin Calcium (Lipitor) 20 mg DAILY@21 PO Last administered on 10/29/16 00:08; Admin Dose 20 MG; Start 10/28/16 at 21:00 Benazepril HCl (Lotensin) 40 mg BID PO Last administered on 10/29/16 09:09; Admin Dose 40 MG; Start 10/28/16 at 21:00 Clopidogrel Bisulfate (plaVIX) 75 mg DAILY PO Last administered on 10/29/16 09: 07; Admin Dose 75 MG; Start 10/29/16 at 09:00 Isosorbide Mononitrate (Imdur) 30 mg DAILY PO Last administered on 10/29/16 09: 07; Admin Dose 30 MG; Start 10/29/16 at 09:00 Metoprolol Tartrate (Lopressor) 50 mg BID PO Last administered on 10/29/16 09: 08; Admin Dose 50 MG; Start 10/28/16 at 21:00 Spironolactone (Aldactone) 25 mg DAILY PO Last administered on 10/29/16 09:08; Admin Dose 25 MG; Start 10/29/16 at 09:00 Aspirin (Ecotrin) 325 mg DAILY PO ; Start 10/30/16 at 09:00 Acetaminophen (Tylenol Tab) 650 mg Q4H PRN PO NON-CARDIAC PAIN LEVEL 1-3; Start 10/29/16 at 12:00 Oxycodone/ Acetaminophen (Percocet (5/ 325)) 1 tab Q4H PRN PO REPORTED NON- CARDIAC PAIN 4-7; Start 10/29/16 at 12:00 Morphine Sulfate (morphine) 1 mg Q1H PRN IV PAIN NOT RELIEVED BY OTHERS; Start 10/29/16 at 12:00 Al Hydrox/Mg Hydrox/Simethicone (Mag-Al Plus) 30 ml Q4H PRN PO GASTROINTESTINAL UPSET; Start 10/29/16 at 12:00 Ondansetron HCl 4 mg 4 mg Q4H PRN IV NAUSEA AND/OR VOMITING; Start 10/29/16 at 12:00 Sodium Chloride (NS) 1,000 ml @ 75 mls/hr [id number] IV Last administered on 12:41; Admin Dose 75 MLS/HR; Start 10/29/16 at 12:00; Stop 10/30/16 at 01:19 HARDEEP SESAY MD Oct 29, 2016 16:43
--- NOTE | 2016-10-29 16:57 | RADRPT ---
Vent Rate: 58 bpm RR Interval: 0 msec [place] Interval: 170 msec QRS Duration: 110 msec QT Interval: 506 msec QTC Interval: 496 msec P-R-T [place]: 63 - -11 - [address] amp; T wave abnormality, consider inferolateral ischemia Prolonged QT Abnormal ECG Electronically Signed By: Benjamin Walker [id number]
[2016-10-29] MEDS: ZOLPIDEM 5 MG TAB PO PRN (20:46)
[2016-10-29] MEDS: AMLODIPINE 5 MG TAB PO SCH (20:46)
[2016-10-29 22:01] LABS: OPIATES Positive (NEGATIVE)
[2016-10-29 22:03] LABS: BARBITURATES Negative (NEGATIVE); BENZODIAZEPINES Positive (NEGATIVE); CANNABINOIDS Positive (NEGATIVE); COCAINE Negative (NEGATIVE)
[2016-10-30] VITALS (23 sets, daily range): BP systolic 76–162; BP diastolic 57–90; PULSE 61–91; RESP 11–27
[2016-10-30 05:11] LABS: ADD SCAN DIFF NO
[2016-10-30 05:18] LABS: BASOPHIL # 0.1 10^3/ul (0.0-0.1); BASOPHILS % 0.4 % (0.0-2.0); EOSINOPHILS # 0.6 10^3/ul (0.0-0.5); EOSINOPHILS % 4.8 % (0.0-7.0); HEMATOCRIT 36.3 % (42.0-52.0); HEMOGLOBIN 12.3 g/dl (14.0-18.0); LYMPHOCYTES # 0.9 10^3/ul (0.8-2.9); LYMPHOCYTES % 7.3 % (15.0-51.0); MEAN CORPUSCULAR HEMOGLOBIN 30.1 pg (29.0-33.0); MEAN CORPUSCULAR HGB CONC 33.9 g/dl (32.0-37.0); MEAN CORPUSCULAR VOLUME 88.8 fl (82.0-101.0); MEAN PLATELET VOLUME 9.1 fl (7.4-10.4); MONOCYTE # 0.8 10^3/ul (0.3-0.9); MONOCYTES % 6.3 % (0.0-11.0); NEUTROPHIL # 10.4 10^3/ul (1.6-7.5); NEUTROPHILS % 80.8 % (39.0-77.0); PLATELET COUNT 245 10^3/UL (140-415); RED BLOOD COUNT 4.09 10^6/ul (4.70-6.10); RED CELL DISTRIBUTION WIDTH 15.5 % (11.5-14.5); WHITE BLOOD COUNT 12.8 10^3/ul (4.8-10.8)
[2016-10-30 05:50] LABS: CALCIUM 8.8 mg/dl (8.4-10.2); CREATININE 1.37 mg/dl (0.61-1.24); POTASSIUM 4.4 mmol/L (3.5-5.1)
[2016-10-30] MEDS: PANTOPRAZOLE 40 MG INJ IV SCH (06:03)
[2016-10-30] MEDS ORDERED: CLOPIDOGREL 75 MG TAB PO SCH (09:00)
[2016-10-30] MEDS: ASPIRIN (EC) 325 MG TAB PO SCH (09:13)
[2016-10-30] MEDS: DOCUSATE SODIUM 100 MG CAP PO SCH ×2 (09:14→21:22)
[2016-10-30] MEDS: CLOPIDOGREL 75 MG TAB PO SCH (09:14)
[2016-10-30] MEDS: ISOSORBIDE MONONITRATE(SR)30 MG TAB PO SCH (09:14)
[2016-10-30] MEDS: AMLODIPINE 5 MG TAB PO SCH ×2 (09:15→23:16)
[2016-10-30] MEDS: METOPROLOL 50 MG TAB PO SCH (09:19)
--- NOTE | 2016-10-30 09:27 | CONS ---
Date/Time of Note Date/Time of Note DATE: 10/30/16 TIME: 09:20 Assessment/Plan Assessment/Plan Chief Complaint/Hosp Course IMP: 1. Nstemi-s/p pTCA.stent to LCX for high grade stenosis POD#1 with NBA 2.HTN-urgency/emergency 3.cardiomyopathy-with low EF 4.renal failure-stable to improved currently 5. Rash-? drug related Recc: -Tele monitoring/ok to transfer to tele floor -serial ecg's -Continue BB with slight increase and CCB at current dose -Will hold imdur as per patient may be causing rash -Continue asa/plavix -add hydralazine afterload reduction in lieu of ACEI given renal failure -Follow creatnine closely for possibility of contrast nephropathy -gentle lasix diuresis and follow volume status -renal following Problems: Consultation Date/Type/Reason Admit Date/Time Oct 28, 2016 at 20:43 Initial Consult Date 10/29/16 Type of Consultation: cardiology Reason for Consultation positive troponin Referring Provider: SKYLER VICTORIA Exam/Review of Systems Vital Signs Vitals Vital Signs Date Time Temp Pulse Resp B/P Pulse Ox O2 Delivery O2 Flow Rate FiO2 10/30/16 08:00 80 18 121/78 98 Room Air 10/30/16 04:00 96.7 10/29/16 18:15 2.0 Intake and Output 10/29/16 10/29/16 10/30/16 15:00 23:00 07:00 Intake Total 540 ml 525 ml 500 ml Output Total 850 ml 250 ml 900 ml Balance -310 ml 275 ml -400 ml Exam Review of Systems: CONSTITUTIONAL: No fevers, chills. PULMONARY: No sob CARDIOVASCULAR: No current chest pain GASTROINTESTINAL: No nausea/vomiting. GENITOURINARY: No hematuria/dysuria. MUSCULOSKELETAL: No myagias/arthalgias. PSYCHIATRIC: The patient denies depression. NEUROLOGIC: No weakness Constitutional: alert Psych: no complaints Head: normocephalic ENMT: mucosa pink and moist Neck: jvd (9 cm water), supple Respiratory: clear to auscultation Cardiovascular: regular rate and rhythm Gastrointestinal: non-tender, soft Musculoskeletal: muscle tone (normal) Extremities: edema (none) Neurological: other (No focal deficits) Results Result Diagram: 7/8/17 0420 7/8/17 0420 Results 24 hrs Laboratory Tests Test 10/29/16 21:05 10/30/16 04:20 Urine Opiates Screen Positive Urine Barbiturates Negative Urine Amphetamines Screen Negative Urine Benzodiazepines Screen Positive Urine Cocaine Screen Negative Urine Cannabinoids Positive White Blood Count 12.8 #H Red Blood Count 4.09 L Hemoglobin 12.3 L Hematocrit 36.3 L Mean Corpuscular Volume 88.8 Mean Corpuscular Hemoglobin 30.1 Mean Corpuscular Hemoglobin Concent 33.9 Red Cell Distribution Width 15.5 H Platelet Count 245 Mean Platelet Volume 9.1 Neutrophils % 80.8 H Lymphocytes % 7.3 L Monocytes % 6.3 Eosinophils % 4.8 Basophils % 0.4 Nucleated Red Blood Cells % 0.0 Neutrophils # 10.4 H Lymphocytes # 0.9 Monocytes # 0.8 Eosinophils # 0.6 H Basophils # 0.1 Nucleated Red Blood Cells # 0.0 Sodium Level 137 Potassium Level 4.4 Chloride Level 105 Carbon Dioxide Level 21 Anion Gap 15 Blood Urea Nitrogen 27 #H Creatinine 1.37 H Glucose Level 95 Calcium Level 8.8 Medications Medications Current Medications Pantoprazole (Protonix Iv) 40 mg DAILY@06 IV Last administered on 10/30/16 06: 03; Admin Dose 40 MG; Start 10/29/16 at 06:00 Docusate Sodium (Colace) 100 mg BID PO Last administered on 10/30/16 09:14; Admin Dose 100 MG; Start 10/28/16 at 21:00 Morphine Sulfate (morphine) 2 mg Q4H PRN IV pain; Start 10/28/16 at 21:00 Atorvastatin Calcium (Lipitor) 20 mg DAILY@21 PO Last administered on 10/29/16 20:45; Admin Dose 20 MG; Start 10/28/16 at 21:00 Clopidogrel Bisulfate (plaVIX) 75 mg DAILY PO Last administered on 10/30/16 09: 14; Admin Dose 75 MG; Start 10/29/16 at 09:00 Isosorbide Mononitrate (Imdur) 30 mg DAILY PO Last administered on 10/30/16 09: 14; Admin Dose 30 MG; Start 10/29/16 at 09:00 Metoprolol Tartrate (Lopressor) 50 mg BID PO Last administered on 10/30/16 09: 19; Admin Dose 50 MG; Start 10/28/16 at 21:00 Aspirin (Ecotrin) 325 mg DAILY PO Last administered on 10/30/16 09:13; Admin Dose 325 MG; Start 10/30/16 at 09:00 Acetaminophen (Tylenol Tab) 650 mg Q4H PRN PO NON-CARDIAC PAIN LEVEL 1-3; Start 10/29/16 at 12:00 Oxycodone/ Acetaminophen (Percocet (5/ 325)) 1 tab Q4H PRN PO REPORTED NON- CARDIAC PAIN 4-7; Start 10/29/16 at 12:00 Morphine Sulfate (morphine) 1 mg Q1H PRN IV PAIN NOT RELIEVED BY OTHERS; Start 10/29/16 at 12:00 Al Hydrox/Mg Hydrox/Simethicone (Mag-Al Plus) 30 ml Q4H PRN PO GASTROINTESTINAL UPSET; Start 10/29/16 at 12:00 Ondansetron HCl (Zofran Inj) 4 mg Q4H PRN IV NAUSEA AND/OR VOMITING; Start 10/29 at 12:00 Amlodipine Besylate (Norvasc) 5 mg BID PO Last administered on 10/30/16 09:15; Admin Dose 5 MG; Start 10/29/16 at 21:00 ROXANN NO Oct 30, 2016 09:27
[2016-10-30] MEDS ORDERED: FUROSEMIDE 20 MG INJ IV ONE (09:30)
--- NOTE | 2016-10-30 10:10 | CONS ---
Date/Time of Note Date/Time of Note DATE: 10/30/16 TIME: 10:07 Consult Date/Type/Reason Admit Date/Time Oct 28, 2016 at 20:43 Initial Consult Date 10/29/16 Type of Consultation: renal Reason for Consultation abnormal renal function and p ost cath for unstable angina Ordering Provider: SKYLER VICTORIA Objective Vital Signs Date Time Temp Pulse Resp B/P Pulse Ox O2 Delivery O2 Flow Rate FiO2 10/30/16 08:00 80 18 121/78 98 Room Air 10/30/16 04:00 96.7 10/29/16 18:15 2.0 Intake and Output 10/29/16 10/29/16 10/30/16 15:00 23:00 07:00 Intake Total 540 ml 525 ml 500 ml Output Total 850 ml 250 ml 900 ml Balance -310 ml 275 ml -400 ml Results/Medications Result Diagram: 10/30/16 0420 10/30/16 0420 Results 24 hrs Laboratory Tests Test 10/29/16 21:05 10/30/16 04:20 Urine Opiates Screen Positive Urine Barbiturates Negative Urine Amphetamines Screen Negative Urine Benzodiazepines Screen Positive Urine Cocaine Screen Negative Urine Cannabinoids Positive White Blood Count 12.8 #H Red Blood Count 4.09 L Hemoglobin 12.3 L Hematocrit 36.3 L Mean Corpuscular Volume 88.8 Mean Corpuscular Hemoglobin 30.1 Mean Corpuscular Hemoglobin Concent 33.9 Red Cell Distribution Width 15.5 H Platelet Count 245 Mean Platelet Volume 9.1 Neutrophils % 80.8 H Lymphocytes % 7.3 L Monocytes % 6.3 Eosinophils % 4.8 Basophils % 0.4 Nucleated Red Blood Cells % 0.0 Neutrophils # 10.4 H Lymphocytes # 0.9 Monocytes # 0.8 Eosinophils # 0.6 H Basophils # 0.1 Nucleated Red Blood Cells # 0.0 Sodium Level 137 Potassium Level 4.4 Chloride Level 105 Carbon Dioxide Level 21 Anion Gap 15 Blood Urea Nitrogen 27 #H Creatinine 1.37 H Glucose Level 95 Calcium Level 8.8 Medications Current Medications Pantoprazole (Protonix Iv) 40 mg DAILY@06 IV Last administered on 10/30/16 06: 03; Admin Dose 40 MG; Start 10/29/16 at 06:00 Docusate Sodium (Colace) 100 mg BID PO Last administered on 10/30/16 09:14; Admin Dose 100 MG; Start 10/28/16 at 21:00 Morphine Sulfate (morphine) 2 mg Q4H PRN IV pain; Start 10/28/16 at 21:00 Atorvastatin Calcium (Lipitor) 20 mg DAILY@21 PO Last administered on 10/29/16 20:45; Admin Dose 20 MG; Start 10/28/16 at 21:00 Clopidogrel Bisulfate (plaVIX) 75 mg DAILY PO Last administered on 10/30/16 09: 14; Admin Dose 75 MG; Start 10/29/16 at 09:00 Isosorbide Mononitrate (Imdur) 30 mg DAILY PO Last administered on 10/30/16 09: 14; Admin Dose 30 MG; Start 10/29/16 at 09:00; Status Future Hold Aspirin (Ecotrin) 325 mg DAILY PO Last administered on 10/30/16 09:13; Admin Dose 325 MG; Start 10/30/16 at 09:00 Acetaminophen (Tylenol Tab) 650 mg Q4H PRN PO NON-CARDIAC PAIN LEVEL 1-3; Start 10/29/16 at 12:00 Oxycodone/ Acetaminophen (Percocet (5/ 325)) 1 tab Q4H PRN PO REPORTED NON- CARDIAC PAIN 4-7; Start 10/29/16 at 12:00 Morphine Sulfate (morphine) 1 mg Q1H PRN IV PAIN NOT RELIEVED BY OTHERS; Start 10/29/16 at 12:00 Al Hydrox/Mg Hydrox/Simethicone (Mag-Al Plus) 30 ml Q4H PRN PO GASTROINTESTINAL UPSET; Start 10/29/16 at 12:00 Ondansetron HCl (Zofran Inj) 4 mg Q4H PRN IV NAUSEA AND/OR VOMITING; Start 10/29 at 12:00 Amlodipine Besylate (Norvasc) 5 mg BID PO Last administered on 10/30/16 09:15; Admin Dose 5 MG; Start 10/29/16 at 21:00 Metoprolol Tartrate (Lopressor) 75 mg BID PO ; Start 10/30/16 at 21:00 Hydralazine HCl (Apresoline) 25 mg Q8 PO ; Start 10/30/16 at 14:00 Assessment/Plan Problems: (1) Unstable angina (2) Renal insufficiency (3) Chest pain Additional Assessment/Plan Renal function improved. No chf. bp well controlled. Recommend follow up bmp in am and mag level. BOBBY GONZALEZ MD Oct 30, 2016 10:10
--- NOTE | 2016-10-30 11:23 | PN ---
Date/Time of Note Date/Time of Note DATE: 10/30/16 TIME: 11:16 Assessment/Plan VTE Prophylaxis VTE Prophylaxis Intervention: LMWH Lines/Catheters IV [facility] Peripheral IV Urinary Cath still in place: No Assessment/Plan Chief Complaint/Hosp Course 1. Non-STEMI Heparin drip Status post PCI with stent placed in the circumflex Downgrade to telemetry in anticipation of discharge tomorrow 2. Hypertensive emergencies-now controlled Continue medical management 3. Acute kidney injury rule out chronic kidney disease: Creatinine improving Nephrology consultation appreciated 4. Known coronary artery disease status post PCI to December 2015 5. Known CHF with chronic ischemic cardiomyopathy with last EF of 37% without acute exacerbation 7. Chronic normocytic anemia 8. Reactive leukocytosis 9. Fatty liver 10. Heavy marijuana as well as alcohol use 11. Dyslipidemia Prophylaxis: Lovenox Problems: Subjective 24 Hr Interval Summary Constitutional: no complaints Exam/Review of Systems Vital Signs Vitals Vital Signs Date Time Temp Pulse Resp B/P Pulse Ox O2 Delivery O2 Flow Rate FiO2 10/30/16 08:00 80 18 121/78 98 Room Air 10/30/16 04:00 96.7 10/29/16 18:15 2.0 Intake and Output 10/29/16 10/29/16 10/30/16 15:00 23:00 07:00 Intake Total 540 ml 525 ml 500 ml Output Total 850 ml 250 ml 900 ml Balance -310 ml 275 ml -400 ml Exam Constitutional: alert Respiratory: clear to auscultation Cardiovascular: regular rate and rhythm Gastrointestinal: soft, No distended Musculoskeletal: nl extremities to inspection Results Result Diagram: 10/30/16 0420 10/30/16 0420 Results 24 hrs Laboratory Tests Test 10/29/16 21:05 10/30/16 04:20 Urine Opiates Screen Positive Urine Barbiturates Negative Urine Amphetamines Screen Negative Urine Benzodiazepines Screen Positive Urine Cocaine Screen Negative Urine Cannabinoids Positive White Blood Count 12.8 #H Red Blood Count 4.09 L Hemoglobin 12.3 L Hematocrit 36.3 L Mean Corpuscular Volume 88.8 Mean Corpuscular Hemoglobin 30.1 Mean Corpuscular Hemoglobin Concent 33.9 Red Cell Distribution Width 15.5 H Platelet Count 245 Mean Platelet Volume 9.1 Neutrophils % 80.8 H Lymphocytes % 7.3 L Monocytes % 6.3 Eosinophils % 4.8 Basophils % 0.4 Nucleated Red Blood Cells % 0.0 Neutrophils # 10.4 H Lymphocytes # 0.9 Monocytes # 0.8 Eosinophils # 0.6 H Basophils # 0.1 Nucleated Red Blood Cells # 0.0 Sodium Level 137 Potassium Level 4.4 Chloride Level 105 Carbon Dioxide Level 21 Anion Gap 15 Blood Urea Nitrogen 27 #H Creatinine 1.37 H Glucose Level 95 Calcium Level 8.8 Medications Medications Current Medications Pantoprazole (Protonix Iv) 40 mg DAILY@06 IV Last administered on 10/30/16 06: 03; Admin Dose 40 MG; Start 10/29/16 at 06:00 Docusate Sodium (Colace) 100 mg BID PO Last administered on 10/30/16 09:14; Admin Dose 100 MG; Start 10/28/16 at 21:00 Morphine Sulfate (morphine) 2 mg Q4H PRN IV pain; Start 10/28/16 at 21:00 Atorvastatin Calcium (Lipitor) 20 mg DAILY@21 PO Last administered on 10/29/16 20:45; Admin Dose 20 MG; Start 10/28/16 at 21:00 Clopidogrel Bisulfate (plaVIX) 75 mg DAILY PO Last administered on 10/30/16 09: 14; Admin Dose 75 MG; Start 10/29/16 at 09:00 Isosorbide Mononitrate (Imdur) 30 mg DAILY PO Last administered on 10/30/16 09: 14; Admin Dose 30 MG; Start 10/29/16 at 09:00; Status Future Hold Aspirin (Ecotrin) 325 mg DAILY PO Last administered on 10/30/16 09:13; Admin Dose 325 MG; Start 10/30/16 at 09:00 Acetaminophen (Tylenol Tab) 650 mg Q4H PRN PO NON-CARDIAC PAIN LEVEL 1-3; Start 10/29/16 at 12:00 Oxycodone/ Acetaminophen (Percocet (5/ 325)) 1 tab Q4H PRN PO REPORTED NON- CARDIAC PAIN 4-7; Start 10/29/16 at 12:00 Morphine Sulfate (morphine) 1 mg Q1H PRN IV PAIN NOT RELIEVED BY OTHERS; Start 10/29/16 at 12:00 Al Hydrox/Mg Hydrox/Simethicone (Mag-Al Plus) 30 ml Q4H PRN PO GASTROINTESTINAL UPSET; Start 10/29/16 at 12:00 Ondansetron HCl (Zofran Inj) 4 mg Q4H PRN IV NAUSEA AND/OR VOMITING; Start 10/29 at 12:00 Amlodipine Besylate (Norvasc) 5 mg BID PO Last administered on 10/30/16t 09:15; Admin Dose 5 MG; Start 10/29/16 at 21:00 Metoprolol Tartrate (Lopressor) 75 mg BID PO ; Start 10/30/16 at 21:00 Hydralazine HCl (Apresoline) 25 mg Q8 PO ; Start 10/30/16 at 14:00 SKYLER VICTORIA Oct 30, 2016 11:22
[2016-10-30] MEDS: ENOXAPARIN 40 MG/0.4 ML SYG SC SCH (11:42)
--- NOTE | 2016-10-30 14:25 | RADRPT ---
Vent Rate: 79 bpm RR Interval: 0 msec [place] Interval: 154 msec QRS Duration: 110 msec QT Interval: 418 msec QTC Interval: 479 msec P-R-T [place]: 59 - -13 - 154 degrees Normal sinus rhythm ST amp; T wave abnormality, consider inferolateral ischemia Abnormal ECG No previous tracing available for comparison Electronically Signed By: Phill Mccain [id number]
[2016-10-30] MEDS: ATORVASTATIN 20 MG TAB PO SCH (21:22)
[2016-10-30] MEDS: METOPROLOL 25 MG TAB PO SCH (21:27)
[2016-10-30] MEDS: ZOLPIDEM 5 MG TAB PO PRN (23:15)
[2016-10-31] VITALS (11 sets, daily range): BP systolic 113–164; BP diastolic 63–81; PULSE 60–79; RESP 17–20
[2016-10-31] MEDS: PANTOPRAZOLE 40 MG INJ IV SCH (05:31)
[2016-10-31 07:46] LABS: ADD SCAN DIFF NO
[2016-10-31 07:57] LABS: BASOPHILS % 0.4 % (0.0-2.0); EOSINOPHILS # 0.7 10^3/ul (0.0-0.5); EOSINOPHILS % 8.6 % (0.0-7.0); HEMATOCRIT 38.3 % (42.0-52.0); HEMOGLOBIN 13.4 g/dl (14.0-18.0); LYMPHOCYTES # 1.5 10^3/ul (0.8-2.9); LYMPHOCYTES % 19.3 % (15.0-51.0); MEAN CORPUSCULAR HEMOGLOBIN 31.4 pg (29.0-33.0); MEAN CORPUSCULAR VOLUME 89.7 fl (82.0-101.0); MEAN PLATELET VOLUME 9.1 fl (7.4-10.4); MONOCYTE # 0.6 10^3/ul (0.3-0.9); NEUTROPHILS % 63.2 % (39.0-77.0); PLATELET COUNT 264 10^3/UL (140-415); RED BLOOD COUNT 4.27 10^6/ul (4.70-6.10); RED CELL DISTRIBUTION WIDTH 14.9 % (11.5-14.5)
[2016-10-31] MEDS: CLOPIDOGREL 75 MG TAB PO SCH (08:09)
[2016-10-31] MEDS: DOCUSATE SODIUM 100 MG CAP PO SCH ×2 (08:09→20:36)
[2016-10-31] MEDS: ASPIRIN (EC) 325 MG TAB PO SCH (08:09)
[2016-10-31] MEDS: AMLODIPINE 5 MG TAB PO SCH ×2 (08:09→20:37)
[2016-10-31] MEDS: METOPROLOL 25 MG TAB PO SCH ×2 (08:10→20:38)
[2016-10-31 08:14] LABS: MAGNESIUM 2.1 mg/dl (1.7-2.5)
[2016-10-31] MEDS: ENOXAPARIN 40 MG/0.4 ML SYG SC SCH (08:17)
[2016-10-31 08:31] LABS: CK-MB 2.83 ng/ml (0.0-2.4)
[2016-10-31 08:32] LABS: TROPONIN-I 0.186 ng/ml (0.00-0.12)
[2016-10-31 08:57] LABS: CALCIUM 9.8 mg/dl (8.4-10.2); CREATININE 1.42 mg/dl (0.61-1.24); POTASSIUM 4.7 mmol/L (3.5-5.1)
[2016-10-31 12:08] LABS: ADD UMIC NO; UR ASCORBIC ACID NEGATIVE (NEGATIVE); UR BILIRUBIN (Dip) NEGATIVE (NEGATIVE); UR BLOOD (Dip) NEGATIVE (NEGATIVE); UR CLARITY CLEAR (CLEAR); UR COLOR YELLOW (YELLOW); UR GLUCOSE (Dip) NEGATIVE (NEGATIVE); UR KETONES (Dip) NEGATIVE (NEGATIVE); UR LEUKOCYTE ESTERASE (Dip) NEGATIVE Leu/ul (NEGATIVE); UR NITRITE (Dip) NEGATIVE (NEGATIVE); UR SPECIFIC GRAVITY (Dip) 1.017 (1.003-1.030); UR TOTAL PROTEIN (Dip) NEGATIVE (NEGATIVE); UR UROBILINOGEN (Dip) NEGATIVE (NEGATIVE)
--- NOTE | 2016-10-31 12:54 | RADRPT ---
Vent Rate: 68 bpm RR Interval: 0 msec [place] Interval: 158 msec QRS Duration: 114 msec QT Interval: 436 msec QTC Interval: 463 msec P-R-T [place]: 61 - -14 - 145 degrees Normal sinus rhythm ST amp; T wave abnormality, consider lateral ischemia Prolonged QT Abnormal ECG No previous tracing available for comparison Electronically Signed By: Phill Mccain [id number]
--- NOTE | 2016-10-31 14:24 | CONS ---
Date/Time of Note Date/Time of Note DATE: 10/31/16 TIME: 14:19 Assessment/Plan Assessment/Plan Chief Complaint/Hosp Course IMP: 1. Nstemi-s/p pTCA.stent to LCX for high grade stenosis POD#1 with NBA 2.HTN-urgency/emergency 3.cardiomyopathy-with low EF 4.renal failure-stable to improved currently 5. Rash-? drug related/improving Recc: -Tele monitoring/ok to transfer to tele floor -serial ecg's -Continue BB and CCB at current dose abd now hydralazine afterload reduction in the setting of low EF but renal failure -Will hold imdur as per patient may be causing rash which is still ongoing -Continue asa/plavix -Follow creatnine closely for possibility of contrast nephropathy which has remained stable -Will place on daily low dose lasix to assure good volume status given cardiomyopathy with low ef -renal following Problems: Consultation Date/Type/Reason Admit Date/Time Oct 28, 2016 at 20:43 Initial Consult Date 10/29/16 Type of Consultation: cardiology Reason for Consultation positive troponin Referring Provider: SKYLER VICTORIA Exam/Review of Systems Vital Signs Vitals Vital Signs Date Time Temp Pulse Resp B/P Pulse Ox O2 Delivery O2 Flow Rate FiO2 10/31/16 12:11 97.8 66 18 113/63 18 10/30/16 20:00 Room Air 10/29/16 18:15 2.0 Intake and Output 10/30/16 10/30/16 10/31/16 15:00 23:00 07:00 Intake Total 1050 ml 500 ml 400 ml Output Total 1250 ml 400 ml Balance -200 ml 100 ml 400 ml Exam Review of Systems: CONSTITUTIONAL: No fevers, chills. PULMONARY: No sob CARDIOVASCULAR: No chest pain/palpitations GASTROINTESTINAL: No nausea/vomiting. GENITOURINARY: No hematuria/dysuria. MUSCULOSKELETAL: No myagias/arthalgias. PSYCHIATRIC: The patient denies depression. NEUROLOGIC: No weakness Constitutional: alert, oriented Psych: no complaints Head: normocephalic ENMT: mucosa pink and moist Neck: jvd (9 cm water), supple Respiratory: clear to auscultation Cardiovascular: regular rate and rhythm Gastrointestinal: non-tender, soft Musculoskeletal: muscle tone (normal) Extremities: edema (none) Neurological: other (No focal deficits) Results Result Diagram: 10/31/16 0706 10/31/16 0706 Results 24 hrs Laboratory Tests Test 10/31/16 06:00 10/31/16 07:06 Urine Color YELLOW Urine Clarity CLEAR Urine pH 5.0 Urine Specific [place] 1.017 Urine Ketones NEGATIVE Urine Nitrite NEGATIVE Urine Bilirubin NEGATIVE Urine Urobilinogen NEGATIVE Urine Leukocyte Esterase NEGATIVE Urine Hemoglobin NEGATIVE Urine Random Sodium 45 Urine Glucose NEGATIVE Urine Total Protein NEGATIVE White Blood Count 8.0 # Red Blood Count 4.27 L Hemoglobin 13.4 L Hematocrit 38.3 L Mean Corpuscular Volume 89.7 Mean Corpuscular Hemoglobin 31.4 Mean Corpuscular Hemoglobin Concent 35.0 Red Cell Distribution Width 14.9 H Platelet Count 264 Mean Platelet Volume 9.1 Neutrophils % 63.2 Lymphocytes % 19.3 Monocytes % 8.0 Eosinophils % 8.6 H Basophils % 0.4 Nucleated Red Blood Cells % 0.0 Neutrophils # 5.0 Lymphocytes # 1.5 Monocytes # 0.6 Eosinophils # 0.7 H Basophils # 0.0 Nucleated Red Blood Cells # 0.0 Sodium Level 144 Potassium Level 4.7 Chloride Level 108 Carbon Dioxide Level 22 Anion Gap 19 H Blood Urea Nitrogen 29 H Creatinine 1.42 H Glucose Level 102 Calcium Level 9.8 Phosphorus Level 3.4 Magnesium Level 2.1 Creatine Kinase 64 Creatine Kinase Index 4.4 Creatinine Kinase MB (Mass) 2.83 H Troponin I 0.186 *H Medications Medications Current Medications Pantoprazole (Protonix Iv) 40 mg DAILY@06 IV Last administered on 10/31/16 05: 31; Admin Dose 40 MG; Start 10/29/16 at 06:00 Docusate Sodium (Colace) 100 mg BID PO Last administered on 10/31/16 08:09; Admin Dose 100 MG; Start 10/28/16 at 21:00 Morphine Sulfate (morphine) 2 mg Q4H PRN IV pain; Start 10/28/16 at 21:00 Atorvastatin Calcium (Lipitor) 20 mg DAILY@21 PO Last administered on 10/30/16 21:22; Admin Dose 20 MG; Start 10/28/16 at 21:00 Clopidogrel Bisulfate (plaVIX) 75 mg DAILY PO Last administered on 10/31/16 08: 09; Admin Dose 75 MG; Start 10/29/16 at 09:00 Aspirin (Ecotrin) 325 mg DAILY PO Last administered on 10/31/16 08:09; Admin Dose 325 MG; Start 10/30/16 at 09:00 Acetaminophen (Tylenol Tab) 650 mg Q4H PRN PO NON-CARDIAC PAIN LEVEL 1-3; Start 10/29/16 at 12:00 Oxycodone/ Acetaminophen (Percocet (5/ 325)) 1 tab Q4H PRN PO REPORTED NON- CARDIAC PAIN 4-7; Start 10/29/16 at 12:00 Morphine Sulfate (morphine) 1 mg Q1H PRN IV PAIN NOT RELIEVED BY OTHERS; Start 10/29/16 at 12:00 Al Hydrox/Mg Hydrox/Simethicone (Mag-Al Plus) 30 ml Q4H PRN PO GASTROINTESTINAL UPSET Last administered on 10/30/16 21:27; Admin Dose 30 ML; Start 10/29/16 at 12:00 Ondansetron HCl (Zofran Inj) 4 mg Q4H PRN IV NAUSEA AND/OR VOMITING; Start 10/29 at 12:00 Amlodipine Besylate (Norvasc) 5 mg BID PO Last administered on 10/31/16 08:09; Admin Dose 5 MG; Start 10/29/16 at 21:00 Metoprolol Tartrate (Lopressor) 75 mg BID PO Last administered on 10/31/16 08: 10; Admin Dose 75 MG; Start 10/30/16 at 21:00 Hydralazine HCl (Apresoline) 25 mg Q8 PO Last administered on 10/31/16 13:44; Admin Dose 25 MG; Start 10/30/16 at 14:00 Enoxaparin Sodium (Lovenox) 40 mg DAILY SC Last administered on 10/31/16 08:17 ; Admin Dose 40 MG; Start 10/30/16 at 12:00 ROXANN NO Oct 31, 2016 14:24
[2016-10-31] MEDS: ATORVASTATIN 20 MG TAB PO SCH (20:37)
[2016-10-31] MEDS: ZOLPIDEM 5 MG TAB PO PRN (22:58)
[2016-11-01] VITALS (8 sets, daily range): BP systolic 138–156; BP diastolic 73–84; PULSE 64–68; RESP 16–20
[2016-11-01] MEDS: PANTOPRAZOLE 40 MG INJ IV SCH (05:34)
[2016-11-01] MEDS: DOCUSATE SODIUM 100 MG CAP PO SCH (08:26)
[2016-11-01] MEDS: ASPIRIN (EC) 325 MG TAB PO SCH (08:27)
[2016-11-01] MEDS: CLOPIDOGREL 75 MG TAB PO SCH (08:27)
--- NOTE | 2016-11-01 08:28 | PQ ---
Date/Time of Note Date/Time of Note DATE: 11/01/16 TIME: 08:18 Physician Query Documentation Clarification Dear Dr. Cheung, A review of the medical record found a need for documentation clarification. 3.cardiomyopathy-with low EF -Continue BB and CCB at current dose abd now hydralazine afterload reduction in the setting of low EF BNP 1210 Lasix ---progress note 10/31 Based on your medical judgement , please clarify a diagnosis being treated. To facilitate accurate and complete coding, please madonna ( x ) the suspected diagnosis that apply: ( ) Chronic Systolic (Reduced EF) Heart Failure ( ) Acute Systolic (Reduced EF) Heart Failure ( ) Systolic dysfunction without heart failure ( ) Others Please provide your response by clicking edit document, making your choice ( x ), click ok/save and finally click sign. You may also document your response on your progress notes. Thank you for your time. With appreciation, Yassine Schwartz RN, BSN, CCS, CCDS Clinical [employer] Worker Health Information Management, [employer] and Coding Services [phone] Room # 1525 - Coding [address]~ [address] YASSINE SCHWARTZ Nov 01, 2016 08:28
[2016-11-01] MEDS: METOPROLOL 25 MG TAB PO SCH (08:29)
[2016-11-01] MEDS: AMLODIPINE 5 MG TAB PO SCH (08:30)
[2016-11-01] MEDS: ENOXAPARIN 40 MG/0.4 ML SYG SC SCH (08:34)
--- NOTE | 2016-11-01 08:50 | CONS ---
Date/Time of Note Date/Time of Note DATE: 11/01/16 TIME: 08:48 Assessment/Plan Assessment/Plan Chief Complaint/Hosp Course Admitted with chest pain and accelerated HBP and sob with evid of impaired renal fx as Scr 1.0 in 08/09. BP was controlled and ht cath today->2 stents placed. Problems: Additional Assessment/Plan 1. Acute renal failure resolved, with stable impaired renal fx, uncertain what is his baseline renal fx, will need follow up with his reg md, stat basic metabolic panel ordered to assure stability. Consultation Date/Type/Reason Admit Date/Time Oct 28, 2016 at 20:43 Initial Consult Date 10/29/16 Type of Consultation: cardiology Referring Provider: SKYLER VICTORIA Detailed Summary Respiratory: No cough, No shortness of breath Cardiovascular: No chest pain, No lightheadedness Gastrointestinal: no complaints Genitourinary: no complaints Exam/Review of Systems Vital Signs Vitals Vital Signs Date Time Temp Pulse Resp B/P Pulse Ox O2 Delivery O2 Flow Rate FiO2 11/01/16 08:26 67 11/01/16 08:06 98.7 18 142/75 98 10/30/16 20:00 Room Air 10/29/16 18:15 2.0 Intake and Output 10/31/16 10/31/16 11/01/16 15:00 23:00 07:00 Intake Total 500 ml 440 ml Balance 500 ml 440 ml Exam Neck: No jvd Respiratory: clear to auscultation Cardiovascular: regular rate and rhythm Gastrointestinal: soft Extremities: No edema Results Result Diagram: 10/31/16 0706 10/31/16 0706 Medications Medications Current Medications Pantoprazole (Protonix Iv) 40 mg DAILY@06 IV Last administered on 11/01/16 05: 34; Admin Dose 40 MG; Start 10/29/16 at 06:00 Docusate Sodium (Colace) 100 mg BID PO Last administered on 11/01/16 08:26; Admin Dose 100 MG; Start 10/28/16 at 21:00 Morphine Sulfate (morphine) 2 mg Q4H PRN IV pain; Start 10/28/16 at 21:00 Atorvastatin Calcium (Lipitor) 20 mg DAILY@21 PO Last administered on 10/31/16 20:37; Admin Dose 20 MG; Start 10/28/16 at 21:00 Clopidogrel Bisulfate (plaVIX) 75 mg DAILY PO Last administered on 11/01/16 08 :27; Admin Dose 75 MG; Start 10/29/16 at 09:00 Aspirin (Ecotrin) 325 mg DAILY PO Last administered on 11/01/16 08:27; Admin Dose 325 MG; Start 10/30/16 at 09:00 Acetaminophen (Tylenol Tab) 650 mg Q4H PRN PO NON-CARDIAC PAIN LEVEL 1-3; Start 10/29/16 at 12:00 Oxycodone/ Acetaminophen (Percocet (5/ 325)) 1 tab Q4H PRN PO REPORTED NON- CARDIAC PAIN 4-7; Start 10/29/16 at 12:00 Morphine Sulfate (morphine) 1 mg Q1H PRN IV PAIN NOT RELIEVED BY OTHERS; Start 10/29/16 at 12:00 Al Hydrox/Mg Hydrox/Simethicone (Mag-Al Plus) 30 ml Q4H PRN PO GASTROINTESTINAL UPSET Last administered on 10/30/16 21:27; Admin Dose 30 ML; Start 10/29/16 at 12:00 Ondansetron HCl (Zofran Inj) 4 mg Q4H PRN IV NAUSEA AND/OR VOMITING; Start 10/29 at 12:00 Amlodipine Besylate (Norvasc) 5 mg BID PO Last administered on 11/01/16 08:30 ; Admin Dose 5 MG; Start 10/29/16 at 21:00 Metoprolol Tartrate (Lopressor) 75 mg BID PO Last administered on 11/01/16 08: 29; Admin Dose 75 MG; Start 10/30/16 at 21:00 Hydralazine HCl (Apresoline) 25 mg Q8 PO Last administered on 11/01/16 05:35; Admin Dose 25 MG; Start 10/30/16 at 14:00 Enoxaparin Sodium (Lovenox) 40 mg DAILY SC Last administered on 11/01/16 08:34 ; Admin Dose 40 MG; Start 10/30/16 at 12:00 HARDEEP SESAY MD Nov 01, 2016 08:49
--- NOTE | 2016-11-01 11:48 | CONS ---
Date/Time of Note Date/Time of Note DATE: 11/01/16 TIME: 11:44 Assessment/Plan Assessment/Plan Chief Complaint/Hosp Course IMP: 1. Nstemi-s/p pTCA.stent to LCX for high grade stenosis with NBA 2.HTN-urgency/emergency 3.cardiomyopathy-with low EF 4.renal failure-stable to improved currently 5. Rash-? drug related/improving Recc: -on TELE -serial ecg's -Continue BB and CCB at current dose and will make slight increase to hydralazine afterload reduction in the setting of low EF but renal failure -Will hold imdur as per patient may be causing rash which is still ongoing -Continue asa/plavix -FollowING creatnine closely for possibility of contrast nephropathy which has remained stable -Contineu daily low dose lasix to assure good volume status given cardiomyopathy with low ef -renal following -D/C planning with outpatient f/u Problems: Consultation Date/Type/Reason Admit Date/Time Oct 28, 2016 at 20:43 Initial Consult Date 10/29/16 Type of Consultation: cardiology Reason for Consultation NSTEMI Referring Provider: SKYLER VICTORIA Exam/Review of Systems Vital Signs Vitals Vital Signs Date Time Temp Pulse Resp B/P Pulse Ox O2 Delivery O2 Flow Rate FiO2 11/01/16 08:26 67 11/01/16 08:06 98.7 18 142/75 98 10/30/16 20:00 Room Air 10/29/16 18:15 2.0 Intake and Output 10/31/16 10/31/16 11/01/16 15:00 23:00 07:00 Intake Total 500 ml 440 ml Balance 500 ml 440 ml Exam Review of Systems: CONSTITUTIONAL: No fevers, chills. PULMONARY: No sob CARDIOVASCULAR: No current chest pain/palpitations GASTROINTESTINAL: No nausea/vomiting. GENITOURINARY: No hematuria/dysuria. MUSCULOSKELETAL: No myagias/arthalgias. PSYCHIATRIC: The patient denies depression. NEUROLOGIC: No weakness Constitutional: alert, oriented Psych: no complaints Head: normocephalic ENMT: mucosa pink and moist Neck: jvd, supple Respiratory: diminished breath sounds Cardiovascular: regular rate and rhythm Gastrointestinal: non-tender, soft Musculoskeletal: muscle tone (normal) Extremities: No edema Neurological: other (No focal deficits) Results Result Diagram: 10/31/1670510/31/16705 Medications Medications Current Medications Pantoprazole (Protonix Iv) 40 mg DAILY@06 IV Last administered on 11/01/16 05: 34; Admin Dose 40 MG; Start 10/29/16 at 06:00 Docusate Sodium (Colace) 100 mg BID PO Last administered on 11/01/16 08:26; Admin Dose 100 MG; Start 10/28/16 at 21:00 Morphine Sulfate (morphine) 2 mg Q4H PRN IV pain; Start 10/28/16 at 21:00 Atorvastatin Calcium (Lipitor) 20 mg DAILY@21 PO Last administered on 10/31/16 20:37; Admin Dose 20 MG; Start 10/28/16 at 21:00 Clopidogrel Bisulfate (plaVIX) 75 mg DAILY PO Last administered on 11/01/16 08 :27; Admin Dose 75 MG; Start 10/29/16 at 09:00 Aspirin (Ecotrin) 325 mg DAILY PO Last administered on 11/01/16 08:27; Admin Dose 325 MG; Start 10/30/16 at 09:00 Acetaminophen (Tylenol Tab) 650 mg Q4H PRN PO NON-CARDIAC PAIN LEVEL 1-3; Start 10/29/16 at 12:00 Oxycodone/ Acetaminophen (Percocet (5/ 325)) 1 tab Q4H PRN PO REPORTED NON- CARDIAC PAIN 4-7; Start 10/29/16 at 12:00 Morphine Sulfate (morphine) 1 mg Q1H PRN IV PAIN NOT RELIEVED BY OTHERS; Start 10/29/16 at 12:00 Al Hydrox/Mg Hydrox/Simethicone (Mag-Al Plus) 30 ml Q4H PRN PO GASTROINTESTINAL UPSET Last administered on 10/30/16 21:27; Admin Dose 30 ML; Start 10/29/16 at 12:00 Ondansetron HCl (Zofran Inj) 4 mg Q4H PRN IV NAUSEA AND/OR VOMITING; Start 10/29 at 12:00 Amlodipine Besylate (Norvasc) 5 mg BID PO Last administered on 11/01/16 08:30 ; Admin Dose 5 MG; Start 10/29/16 at 21:00 Metoprolol Tartrate (Lopressor) 75 mg BID PO Last administered on 11/01/16 08: 29; Admin Dose 75 MG; Start 10/30/16 at 21:00 Hydralazine HCl (Apresoline) 25 mg Q8 PO Last administered on 11/01/16 05:35; Admin Dose 25 MG; Start 10/30/16 at 14:00 Enoxaparin Sodium (Lovenox) 40 mg DAILY SC Last administered on 11/01/16 08:34 ; Admin Dose 40 MG; Start 10/30/16 at 12:00 ROXANN NO Nov 01, 2016 11:47
[2016-11-01] MEDS ORDERED: BENA40TA41 PO (12:43)
[2016-11-01] MEDS ORDERED: HYDR-3671 PO (12:43)
[2016-11-01] MEDS ORDERED: METO25TA7 PO (12:43)
[2016-11-01] MEDS ORDERED: AMLO-145 PO (12:43)
[2016-11-01] MEDS ORDERED: LAS20 PO (12:43)
--- NOTE | 2016-11-01 12:45 | PDOCDIS ---
Discharge Instructions DIAGNOSIS Discharge Diagnosis 1. Nstemi-s/p pTCA.stent to LCX for high grade stenosis with NBA 2.HTN: improvd control 3.cardiomyopathy-with low EF 4.renal failure-stable 5. Rash: improved . CONDITION Patient Condition: Stable HOME CARE INSTRUCTIONS: Special Diet: low fat/chol ACTIVITY: Activity Restrictions: Slowly Increase Activity Rest between Activity FOLLOW UP/APPOINTMENTS Follow-up Plan Please followup with Dr Cheung for cardiology Name, Degree: Jah Cheung MD Specialty: Cardiology Comments: Office Address: [address] [place] [address] Office Office Nursing Program Coordinator: SOM Silva Nov 01, 2016 12:45
--- NOTE | 2016-11-01 12:51 | DS ---
Date/Time of Note Date/Time of Note DATE: 11/01/16 TIME: 12:48 Discharge Summary Admission/Discharge Info Admit Date/Time Oct 28, 2016 at 20:43 Discharge Date/Time 11/01/16 Discharge Diagnosis 1. S/p Non-STEMI : S/p PTCA and NBA to LCx 2. Hypertensive emergencies-now controlled 3. Acute kidney injury on chronic kidney disease: resolved 4. Known coronary artery disease status post PCI to December 2015 5. Known CHF with chronic ischemic cardiomyopathy with last EF of 37% without acute exacerbation 7. Chronic normocytic anemia 8. Reactive leukocytosis 9. Fatty liver 10. Heavy marijuana as well as alcohol use 11. Dyslipidemia . Patient Condition: Stable Hx of Present Illness 66-year-old male who was sent to the emergency room from his foreign exchange services manager, Dr. Cheung office because of severely elevated blood pressure and chest pain. Chest pain was associated with some shortness of breath, and he had abnormal EKG findings concerning for ST depressions and a borderline ST elevation. A code STEMI was called which was later canceled after the patient responded to aggressive antihypertension, nitroglycerin therapy. He is being admitted to the intensive care unit for further management. Hospital Course This is a 66-year-old male who originally presented October 28, 2016 sent from his foreign exchange services manager's office because of chest pain and elevated blood pressure was admitted with hypertensive emergency and EKG concerns for non-ST elevation myocardial infarction. This was however found to be a non-ST elevation myocardial infarction, and he was taken to the labels molder for coronary angiogram where he underwent PTCA with a stent to left circumflex for high-grade stenosis with drug-eluting stent. Post angiographic he did quite well, he was monitored in the intensive care unit for short period after which she was transferred to the telemetry floor for continued management. He was seen by nephrology because of an acute renal failure upon arrival, and the bulk of his hospitalization was spent managing his pain and titrating his antihypertensives for improved control. He has done quite well, and at this time his blood pressure is still mildly elevated but his medication regimen has been adjusted and he has been cleared by cardiology for discharge. He does see Dr. Cheung as outpatient and Dr. Cheung wants him to see him for continued management as outpatient. His creatinine was closely monitored for the possibility of contrast nephropathy, and his creatinine levels have remained steady. He will continue to be monitored outpatient. Today the patient is chest pain-free, his physical examination is benign, he is being discharged home in stable condition. The patient also has a history of heavy marijuana as well as alcohol use, he was counseled on the need to quit smoking, and also on the dangers of heavy alcohol use. This was reinforced throughout his hospitalization. . Home Meds Active Scripts Metoprolol Succinate* (Toprol XL*) 25 Mg Tab.sr.24h, 75 MG PO DAILY, #90 TAB [facility] 11/01/16 Furosemide (Lasix) 20 Mg Tab, 20 MG PO DAILY for 30 Days, TAB [facility] [place]. 11/01/16 Hydralazine Hcl* (Hydralazine Hcl*) 25 Mg Tab, 50 MG PO Q8 for 30 Days, TAB 1 Refill Prov:[facility]. 11/01/16 Amlodipine Besylate* (Amlodipine Besylate*) 5 Mg Tablet, 5 MG PO BID for 30 Days , TAB 2 Refills [facility] [place]. 11/01/16 Benazepril Hcl* (Benazepril Hcl*) 40 Mg Tablet, 40 MG PO DAILY, #30 TAB Prov[facility] [place]. 11/01/16 Atorvastatin Calcium (Atorvastatin Calcium) 20 Mg Tablet, 20 MG PO DAILY@21, # 30 TAB 2 Refills Prov:SUPA BARDALES S. 08/22/16 Clopidogrel Bisulfate (Clopidogrel) 75 Mg Tablet, 75 MG PO DAILY, #30 TAB 6 Refills Prov:SUPA BARDALES S. 08/22/16 Furosemide (Lasix) 40 Mg Tab, 40 MG PO DAILY, #30 TAB 2 Refills Prov:SUPA BARDALES S. 08/22/16 Reported Medications Isosorbide Mononitrate* (Isosorbide Mononitrate*) 30 Mg Tab.er.24h, 30 MG PO DAILY, TAB 10/28/16 Metoprolol Tartrate* (Lopressor*) 50 Mg Tab, 50 MG PO BID, #60 TAB 10/28/16 Aspirin* (Aspirin* EC) 81 Mg Tablet.dr, 81 MG PO DAILY, TAB 10/28/16 Spironolactone* (Aldactone*) 25 Mg Tablet, 25 MG PO DAILY, #30 TAB 10/28/16 Discontinued Scripts Levofloxacin* (Levaquin*) 750 Mg Tablet, 750 MG PO DAILY for 5 Days, TAB Prov:SUPA BARDALES S. 08/22/16 Metoprolol Tartrate* (Lopressor*) 25 Mg Tab, 25 MG PO BID, #60 TAB 2 Refills Prov:ASIF BARDALESP S. 08/22/16 Benazepril Hcl* (Benazepril Hcl*) 20 Mg Tablet, 20 MG PO BID, #60 TAB 3 Refills Prov:NURA BARDALESSUPA S. 08/22/16 Aspirin* (Aspirin* EC) 81 Mg Tablet., 81 MG PO DAILY, #30 2 Refills Prov:ISIS GRAMAJO MD 01/16/16 Follow-up Plan See hospital course . Primary Care Provider Hans Bedoya Time spent on discharge: > 30 minutes SOM CAO Nov 01, 2016 12:51
[2016-11-01 13:16] LABS: CALCIUM 9.1 mg/dl (8.4-10.2); CREATININE 1.34 mg/dl (0.61-1.24); POTASSIUM 4.2 mmol/L (3.5-5.1)
[2016-11-02] MEDS ORDERED: FUROSEMIDE 20 MG TAB PO SCH (09:00)
== END 2016-11-01 14:34 | disposition home or self-care (01) | DRG 247 ==
LOC: E/R 17:28 → ICU 20:43 → MS4 10-30 20:36
PROVIDERS: ADMIT Family Medicine; ATTEND Family Medicine
PROC: B211YZZ Fluoroscopy of Multiple Coronary Arteries using Other Contrast (ICD-10-PCS; 2016-10-29)
PROC: 027035Z Dilation of Coronary Artery, One Artery with Two Drug-eluting Intraluminal Devices, Percutaneous Approach (ICD-10-PCS; principal; 2016-10-29 11:30)
PROC: 4A023N7 Measurement of Cardiac Sampling and Pressure, Left Heart, Percutaneous Approach (ICD-10-PCS; 2016-10-29 11:30)
DX: I21.4 Non-ST elevation (NSTEMI) myocardial infarction (principal); N17.9 Acute kidney failure, unspecified; K76.0 Fatty (change of) liver, not elsewhere classified; I50.22 Chronic systolic (congestive) heart failure; I13.0 Hypertensive heart and chronic kidney disease with heart failure and stage 1 through stage 4 chronic kidney disease, or unspecified chronic kidney disease; I16.1 Hypertensive emergency; I25.10 Atherosclerotic heart disease of native coronary artery without angina pectoris; N18.9 Chronic kidney disease, unspecified; I25.5 Ischemic cardiomyopathy; D64.9 Anemia, unspecified; E78.5 Hyperlipidemia, unspecified; R21 Rash and other nonspecific skin eruption; Z98.61 Coronary angioplasty status; Z72.89 Other problems related to lifestyle
CPT/HCPCS: 36415; 71010; 80048; 80307; 81003; 82550; 82553; 83540; 83735; 83880; 84100; 84300; 84484; 85025; 85610; 85730; 87081; 93005; 93458; 96365; 96366; 96375; J1940; C1725; C1769; C1874; C1887; C9113; C9600; J0461; J1644; J1650; J2270; J7030; J7040